=== PATIENT | male | born 1985 | race Caucasian/White ===

== ENCOUNTER 2016-09-21 11:53 | Emergency (ER) | payer MEDICAID ==
[~2016-09-21 11:53] MED LIST: GLUCTES12; INSU1MIS15; LANTUS2P SQ; NOVOLOGP2 SQ
[2016-09-21 11:56] VITALS: BP 127/82; PULSE 116; RESP 24; TEMP 98; O2SAT 95
[2016-09-21] MEDS ORDERED: SODIUM CHLOR 0.9% 1000 ML INJ 1,000 ML IV SCH ×2 (12:32→13:47)
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
[2016-09-21] MEDS ORDERED: TETANUS/DIPHTHERIA TOXOID ADULT 0.5 ML VIAL IM ONE (12:45)
[2016-09-21 12:55] LABS: AUTOMATED NEUTROPHIL # 15.2 TH/MM3 (1.8-7.7); BASOPHIL # 0.1 TH/MM3 (0-0.2); BASOPHIL % 0.4 % (0.0-2.0); EOSINOPHIL # 0.1 TH/MM3 (0-0.4); EOSINOPHIL % 0.7 % (0.0-4.0); HEMATOCRIT 44.1 % (39.0-51.0); HEMO FLAGS DIFF FINAL; LYMPH % 13.6 % (9.0-44.0); LYMPHOCYTE # 2.6 TH/MM3 (1.0-4.8); MEAN CELL VOLUME 95.9 FL (80.0-100.0); MEAN CORPUSCULAR HEMOGLOBIN 31.4 PG (27.0-34.0); MEAN CORPUSCULAR HGB CONC 32.7 % (32.0-36.0); MONO % 5.3 % (0.0-8.0); PLATELET COUNT 275 TH/MM3 (150-450); RED CELL DISTRIBUTION WIDTH 13.9 % (11.6-17.2); WHITE BLOOD COUNT 18.9 TH/MM3 (4.0-11.0)
[2016-09-21 13:02] LABS: AMPHETAMINE, URINE NEG (NEG); BARBITURATES, URINE NEG (NEG); COCAINE, URINE NEG (NEG)
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
[2016-09-21 13:15] LABS: ALKALINE PHOSPHATASE 155 U/L (45-117); ALT (GPT) 22 U/L (12-78); TOTAL BILIRUBIN ADULT 0.3 MG/DL (0.2-1.0)
[2016-09-21 13:18] LABS: ANION GAP 15 MEQ/L (5-15); AST (GOT) 24 U/L (15-37); BICARBONATE 20.2 MEQ/L (21.0-32.0); BLOOD UREA NITROGEN 13 MG/DL (7-18); CHLORIDE 100 MEQ/L (98-107); GLOMERULAR FILTRATION RATE 76 ML/MIN (>89); SODIUM (NA) 135 MEQ/L (136-145)
[2016-09-21 13:23] LABS: ACETAMINOPHEN LESS THAN 2.0 MCG/ML (10.0-30.0)
[2016-09-21 14:37] VITALS: BP 113/58; PULSE 85; RESP 20; O2SAT 100
--- NOTE | 2016-09-21 15:02 | RADRPT ---
EXAM DATE/TIME: 09/21/2016 14:41 [facility] COMPARISON: CHEST SINGLE AP, August 18, 2016, 11:47. INDICATIONS : Patient no known injury. Psych eval. MEDICAL HISTORY : None. SURGICAL HISTORY : None. ENCOUNTER: Initial ACUITY: 1 day PAIN SCORE: 0/10 LOCATION: Bilateral chest FINDINGS: A single view of the chest demonstrates the lungs to be symmetrically aerated without evidence of mas s, infiltrate or effusion. The cardiomediastinal contours are unremarkable. Osseous structures are intact. CONCLUSION: No acute disease. Adam Briggs MD FACR on September 21, 2016 at 15:00 Board Certified Radiologist. This report was verified electronically.
[2016-09-21] MEDS ORDERED: INSULIN HUMAN REGULAR 1,000 UNITS/10 ML VIAL SQ ONE ×2 (16:15→23:30)
[2016-09-21 16:30] LABS: BLOOD, URINE NEG (NEG); COMMENT (UR) CULT NOT INDICATED; CULTURE IF INDICATED CULT NOT INDICATED; GLUCOSE,URINE 1000 mg/dL (NEG); KETONE, URINE 10 mg/dL (NEG); MUCUS URINE FEW /lpf (OCC); NITRITE,URINE NEG (NEG); PH, URINE 5.5 (5.0-8.5); URINE COLOR YELLOW (YELLW/STRAW)
[2016-09-21 18:51] VITALS: BP 129/71; PULSE 84; RESP 18; TEMP 98.2; O2SAT 97
[2016-09-21] MEDS ORDERED: hydrOXYzine HCL 25 MG TAB PO ONE (20:45)
[2016-09-21] MEDS ORDERED: NICOTINE 21 MG/24 HR PATCH TD ONE (20:45)
[2016-09-21 22:19] VITALS: BP 119/66; PULSE 81; RESP 19; O2SAT 99
[2016-09-22 02:12] VITALS: BP 127/75; PULSE 75; RESP 18; O2SAT 100
[2016-09-22 06:27] VITALS: BP 117/61; PULSE 68; RESP 19; O2SAT 98
== END 2016-09-22 08:27 | disposition home or self-care (01) ==
LOC: NEPA 11:53 → NEPJ 09-22 08:27
DX: R45.851 Suicidal ideations (principal); S09.90XA Unspecified injury of head, initial encounter; R73.9 Hyperglycemia, unspecified; E11.65 Type 2 diabetes mellitus with hyperglycemia; D72.829 Elevated white blood cell count, unspecified; R51 Headache; Y00.XXXA Assault by blunt object, initial encounter; I10 Essential (primary) hypertension; F17.200 Nicotine dependence, unspecified, uncomplicated; F12.90 Cannabis use, unspecified, uncomplicated
CPT/HCPCS: 70450; 71010; 80053; 80307; 80329; 81001; 85025; 90471; 90714; 96360; 96361; 96372; 99285; J1815; J7030; 80320; G0480

== ENCOUNTER 2016-12-18 11:30 | Inpatient (IN) | payer MEDICAID ==
[~2016-12-18] VITALS: Ht 167.6 cm; Wt 61.7 kg
[2016-12-18 12:22] VITALS: BP 116/61; PULSE 63; RESP 16; TEMP 98.6; O2SAT 98
[2016-12-18] MEDS ORDERED: SODIUM CHLOR 0.9% 1000 ML INJ 1,000 ML IV SCH ×3 (12:35→15:41)
[2016-12-18] MEDS ORDERED: SODIUM CHLOR 0.9% 1000 ML INJ 1,000 ML IV ONE (12:45)
[2016-12-18] MEDS ORDERED: ONDANSETRON HCL 4 MG/2 ML VIAL IVP ONE (12:45)
[2016-12-18] MEDS ORDERED: SODIUM CHLORIDE 0.9% FLUSH 10 ML FLUSH IV FLUSH PRN (12:45)
[2016-12-18] MEDS ORDERED: INSULIN HUMAN REGULAR 1,000 UNITS/10 ML VIAL IV PUSH ONE ×2 (12:45)
--- NOTE | 2016-12-18 12:48 | PD ---
HPI Chief Complaint: Diabetic Time Seen by Provider: 12:30 Travel History International Travel<30 days: No Contact w/Intl Traveler<30days: No Traveled to known affect area: No History of Present Illness HPI Patient comes emergency Department via EMS after running out of insulin yesterday. Patient is a noncompliant type I diabetic who tries to manage his own diabetes. Patient reports he does not have a primary care doctor and just comes emergency Department whenever he runs out. Patient states he ran out completely yesterday but did not have proper dosing yesterday. Patient complaining of pain in his epigastric region he states typically happens when he runs out of insulin and his blood sugars get high. Patient reports he typically resolves once his blood sugar goes down. Patient states last time this happened approximately 2 months ago as it was last time he received prescription from hospital for 2 months supply. Denies any fevers, nausea, vomiting, chest pain, shortness of breath, or diarrhea. PFSH Past Medical History Hx Anticoagulant Therapy: No Cancer: No Cardiovascular Problems: No Chemotherapy: No Cerebrovascular Accident: No Diabetes: Yes Patient Takes Glucophage: No Diminished Hearing: No Endocrine: Yes Genitourinary: No Hypertension: Yes Immune Disorder: No Implanted Vascular Access Dvce: No Musculoskeletal: Yes Psychiatric: No Reproductive: No Respiratory: No Immunizations Current: Yes Thyroid Disease: No Past Surgical History Hysterectomy: No Oral Surgery: Yes (TEETH REMOVED) Other Surgery: No Social History Alcohol Use: Yes (OCC) Tobacco Use: Yes (/2 PPD) Substance Use: Yes (MARIJUANA yesterday) Allergies-Medications (Allergen,Severity, Reaction): Coded Allergies: No Known Allergies (Unverified , 12/18/16) Reported Meds & Prescriptions Reported Meds & Active Scripts Active Glucocom Test Strips (Blood Glucose Test Strips) 1 Khushboo Khushboo 1 Ea .ROUTE DIRECTED Insulin Syringe/U-100/31G X 5/16" 1 ml 1 Mis Mis 1 Box .ROUTE DIRECTED Lantus Inj (Insulin Glargine) 1,000 Unit/10 Ml Vial 25 Units SQ BIDAC Novolog Inj (Insulin Aspart) 1,000 Unit/10 Ml Vial 1 Units SQ ACHS per previous sliding scale Review of Systems Except as stated in HPI: all other systems reviewed are Neg Physical Exam Narrative GENERAL: Well-developed, well nourished, in no acute distress, and non-ill appearing. SKIN: Focused skin assessment warm and dry. HEAD: Atraumatic. Normocephalic. EYES: Pupils equal and round. EOMI. No scleral icterus. No injection or drainage. ENT: No nasal bleeding or discharge. Mucous membranes pink and moist. NECK: Trachea midline. Supple. No nuclear rigidity. CARDIOVASCULAR: Regular rate and rhythm. No murmur appreciated. RESPIRATORY: No accessory muscle use. No respiratory distress. Clear to auscultation. Breath sounds equal bilaterally. GASTROINTESTINAL: Abdomen soft, reports tenderness epigastric region on palpation, nondistended. Hepatic and splenic margins not palpable. Normal bowel sounds 4. No pulsatile mass. MUSCULOSKELETAL: No obvious deformities. No clubbing. No cyanosis. No edema. Full range of motion. NEUROLOGICAL: Awake and alert. No obvious cranial nerve deficits. Motor grossly within normal limits. Normal speech. PSYCHIATRIC: Appropriate mood and affect; insight and judgment normal. Data Data Last Documented VS Vital Signs Date Time Temp Pulse Resp B/P Pulse Ox O2 Delivery O2 Flow Rate FiO2 12/18/16 12:22 98.6 63 16 116/61 98 Orders Electrocardiogram (12/18/16 12:35) Lipase (12/18/16 12:35) Troponin I (12/18/16 12:35) Complete Blood Count With Diff (12/18/16 12:35) Comprehensive Metabolic Panel (12/18/16 12:35) Magnesium (Mg) (12/18/16 12:35) Beta Hydroxybutyrate (Acetone) (12/18/16 12:35) Chest, Single Ap (12/18/16 ) Urinalysis - C+S If Indicated (12/18/16 12:35) Iv Access Insert/Monitor (12/18/16 12:35) Ecg Monitoring (12/18/16 12:35) Oximetry (12/18/16 12:35) NPO (12/18/16 12:35) Ondansetron Inj (Zofran Inj) (12/18/16 12:45) Sodium Chlor 0.9% 1000 Ml Inj (Ns 1000 M (12/18/16 12:35) Sodium Chloride 0.9% Flush (Ns Flush) (12/18/16 12:45) Insulin Human Regular Inj (Novolin R Inj (12/18/16 12:45) Ckmb (Isoenzyme) Profile (12/18/16 12:35) Blood Gas Venous (Vbg) (12/18/16 12:35) Insulin Human Regular Inj (Novolin R Inj (12/18/16 12:45) Sodium Chlor 0.9% 1000 Ml Inj (Ns 1000 M (12/18/16 12:45) Diet Npo (12/18/16 Dinner) Sodium Chlor 0.9% 1000 Ml Inj (Ns 1000 M (12/18/16 14:06) Dext 5%-Nacl 0.9% 1000 Ml Inj (D5w-Ns 10 (12/18/16 14:06) Insulin Regular (Iv Infusion) (Novolin R (12/18/16 14:15) Potassium Chlor 20 Meq Premix (Kcl 20 Me (12/18/16 14:15) Potassium Chlor 20 Meq Premix (Kcl 20 Me (12/18/16 14:15) Potassium Chlor 20 Meq Premix (Kcl 20 Me (12/18/16 14:15) Potassium Chlor 20 Meq Premix (Kcl 20 Me (12/18/16 14:15) Sodium Bicarbonate 8.4% Inj (Sodium Bica (12/18/16 14:15) Sodium Bicarbonate 8.4% Inj (Sodium Bica (12/18/16 14:15) Sodium Phosphate Inj (Sodium Phosphate I (12/18/16 14:15) Admit Order (Ed Use Only) (12/18/16 14:32) Labs Laboratory Tests Test 12/18/16 12/18/16 12/18/16 12:45 13:10 13:53 White Blood Count 7.4 TH/MM3 Red Blood Count 4.15 MIL/MM3 Hemoglobin 13.4 GM/DL Hematocrit 40.6 % Mean Corpuscular Volume 97.9 FL Mean Corpuscular Hemoglobin 32.4 PG Mean Corpuscular Hemoglobin 33.1 % Concent Red Cell Distribution Width 12.6 % Platelet Count 220 TH/MM3 Mean Platelet Volume 10.8 FL Neutrophils (%) (Auto) 61.4 % Lymphocytes (%) (Auto) 28.1 % Monocytes (%) (Auto) 5.4 % Eosinophils (%) (Auto) 3.0 % Basophils (%) (Auto) 2.1 % Neutrophils # (Auto) 4.5 TH/MM3 Lymphocytes # (Auto) 2.1 TH/MM3 Monocytes # (Auto) 0.4 TH/MM3 Eosinophils # (Auto) 0.2 TH/MM3 Basophils # (Auto) 0.2 TH/MM3 CBC Comment DIFF FINAL Differential Comment Sodium Level 133 MEQ/L Potassium Level 4.5 MEQ/L Chloride Level 99 MEQ/L Carbon Dioxide Level 18.8 MEQ/L Anion Gap 15 MEQ/L Blood Urea Nitrogen 18 MG/DL Creatinine 1.03 MG/DL Estimat Glomerular Filtration 85 ML/MIN Rate Random Glucose 453 MG/DL Calcium Level 8.1 MG/DL Magnesium Level 1.9 MG/DL Total Bilirubin 0.7 MG/DL Aspartate Amino Transf 36 U/L (AST/SGOT) Alanine Aminotransferase 54 U/L (ALT/SGPT) Alkaline Phosphatase 183 U/L Total Creatine Kinase 66 U/L Troponin I LESS THAN 0.02 NG/ML Total Protein 6.0 GM/DL Albumin 3.0 GM/DL Lipase 90 U/L B-Hydroxybutyrate 4.20 MMOL/L Urine Color LIGHT-YELLOW Urine Turbidity CLEAR Urine pH 5.0 Urine Specific [place] 1.032 Urine Protein NEG mg/dL Urine Glucose (UA) 1000 mg/dL Urine Ketones 40 mg/dL Urine Occult Blood NEG Urine Nitrite NEG Urine Bilirubin NEG Urine Urobilinogen LESS THAN 2.0 MG/DL Urine Leukocyte Esterase NEG Urine RBC LESS THAN 1 /hpf Urine WBC LESS THAN 1 /hpf Urine Mucus FEW /lpf Microscopic Urinalysis Comment CULT NOT INDICATED Blood Gas Puncture Site I.V. Blood Gas Patient Temperature 98.6 Venous Blood pH 7.31 Venous Blood Partial Pressure 37 mmHg CO2 Venous Blood Partial Pressure 44 mmHg O2 Venous Blood HCO3 18 mmol/L Venous Blood Oxygen Saturation 73 % Venous Blood Oxygen Content 13.1 Vol % Venous Blood Base Excess -7.1 mmol/L Oxygen Delivery Device ROOM AIR Blood Gas Inspired Oxygen 21 % [facility] Medical Decision Making Medical Screen Exam Complete: Yes Emergency Medical Condition: Yes Differential Diagnosis DKA, hyperglycemia, electrolyte abnormality, medical noncompliance, other Narrative Course Patient was seen and examined. Laboratory and radiological studies were ordered. Patient given IV fluids and IV insulin. Discussed patient with Dr. Mc, who saw and evaluated the patient and admitted the patient to hospitalist. Please see dictation for final diagnosis and disposition. Kashmir Fisher Dec 18, 2016 12:48
[2016-12-18 13:04] LABS: AUTOMATED NEUTROPHIL # 4.5 TH/MM3 (1.8-7.7); BASOPHIL # 0.2 TH/MM3 (0-0.2); BASOPHIL % 2.1 % (0.0-2.0); EOSINOPHIL # 0.2 TH/MM3 (0-0.4); HEMATOCRIT 40.6 % (39.0-51.0); HEMO FLAGS DIFF FINAL; LYMPH % 28.1 % (9.0-44.0); LYMPHOCYTE # 2.1 TH/MM3 (1.0-4.8); MEAN CELL VOLUME 97.9 FL (80.0-100.0); MEAN CORPUSCULAR HEMOGLOBIN 32.4 PG (27.0-34.0); MEAN CORPUSCULAR HGB CONC 33.1 % (32.0-36.0); MONO % 5.4 % (0.0-8.0); NEUT % 61.4 % (16.0-70.0); PLATELET COUNT 220 TH/MM3 (150-450); RED BLOOD COUNT 4.15 MIL/MM3 (4.50-5.90); RED CELL DISTRIBUTION WIDTH 12.6 % (11.6-17.2); WHITE BLOOD COUNT 7.4 TH/MM3 (4.0-11.0)
--- NOTE | 2016-12-18 13:07 | RADRPT ---
EXAM DATE/TIME: 12/18/2016 12:42 [facility] COMPARISON: CHEST SINGLE AP, September 21, 2016, 14:41. INDICATIONS : Chest pain. Patient states he has been having chest pain off and on. MEDICAL HISTORY : Hypertension. Diabetes mellitus type 1. SURGICAL HISTORY : None. ENCOUNTER: Initial ACUITY: 1 day PAIN SCORE: 7/10 LOCATION: Bilateral chest FINDINGS: A single view of the chest demonstrates the lungs to be symmetrically aerated without evidence of mas s, infiltrate or effusion. The cardiomediastinal contours are unremarkable. Osseous structures are intact. CONCLUSION: No acute disease. Tank Leung MD on December 18, 2016 at 13:05 Board Certified Radiologist. This report was verified electronically.
[2016-12-18 13:18] LABS: ALT (GPT) 54 U/L (12-78); ANION GAP 15 MEQ/L (5-15); AST (GOT) 36 U/L (15-37); BICARBONATE 18.8 MEQ/L (21.0-32.0); BLOOD UREA NITROGEN 18 MG/DL (7-18); CHLORIDE 99 MEQ/L (98-107); GLOMERULAR FILTRATION RATE 85 ML/MIN (>89); MAGNESIUM 1.9 MG/DL (1.5-2.5); POTASSIUM 4.5 MEQ/L (3.5-5.1); SODIUM (NA) 133 MEQ/L (136-145)
[2016-12-18 13:22] LABS: ALKALINE PHOSPHATASE 183 U/L (45-117); TOTAL BILIRUBIN ADULT 0.7 MG/DL (0.2-1.0)
[2016-12-18 13:23] LABS: CREATINE KINASE 66 U/L (39-308)
[2016-12-18 13:31] LABS: BLOOD, URINE NEG (NEG); GLUCOSE,URINE 1000 mg/dL (NEG); KETONE, URINE 40 mg/dL (NEG); MUCUS URINE FEW /lpf (OCC); NITRITE,URINE NEG (NEG); URINE COLOR LIGHT-YELLOW (YELLW/STRAW)
[2016-12-18 13:40] LABS: COMMENT (UR) CULT NOT INDICATED; CULTURE IF INDICATED CULT NOT INDICATED
[2016-12-18 14:03] LABS: BLOOD GAS VENOUS BASE EXCESS -7.1 mmol/L (-2-2); BLOOD GAS VENOUS HCO3 18 mmol/L (22-26); BLOOD GAS VENOUS O2 CONTENT 13.1 Vol % (9.0-17.0); BLOOD GAS VENOUS O2 HGB SAT 73 % (70-76); BLOOD GAS VENOUS PCO2 37 mmHg (44-48); BLOOD GAS VENOUS PO2 44 mmHg (35-40); BLOOD GAS VENOUS pH 7.31 (7.360-7.400); TEMP CORR TO 98.6
[2016-12-18 14:04] LABS: CRITICAL VALUE YES; DRAW SITE I.V.; FIO2 21 %; OXYGEN DEVICE ROOM AIR; STAT YES
[2016-12-18] MEDS ORDERED: DEXT 5%-NACL 0.9% 1000 ML INJ 1,000 ML IV SCH ×2 (14:06→15:41)
[2016-12-18] MEDS ORDERED: POTASSIUM CHLOR 20 MEQ PREMIX 100 ML IV PRN ×10 (14:15→15:45)
[2016-12-18] MEDS ORDERED: INSULIN REGULAR (IV INFUSION) 100 UNITS in SODIUM CHLORIDE 0.9% INJ 99 ML IV SCH ×2 (14:15→15:45)
[2016-12-18] MEDS ORDERED: SODIUM PHOSPHATE INJ 15 MMOL in SODIUM CHLORIDE 0.9% INJ 100 ML IV PRN ×2 (14:15→15:45)
[2016-12-18] MEDS ORDERED: SODIUM BICARBONATE 8.4% SOLN 50 MEQ/50 ML VIAL IV PRN ×3 (14:15→15:45)
--- NOTE | 2016-12-18 15:11 | PD ---
Physical Exam Narrative GENERAL: Well-nourished, well-developed patient. SKIN: Warm and dry. HEAD: Normocephalic EYES: No injection or drainage. ENT: No nasal drainage noted. NECK: Supple, trachea midline. CARDIOVASCULAR: Regular rate and rhythm RESPIRATORY: no increased effort. No accessory muscle use. NEUROLOGICAL: Awake and alert. Motor and sensory grossly within normal limits. Normal speech. Data Data Last Documented VS Vital Signs Date Time Temp Pulse Resp B/P Pulse Ox O2 Delivery O2 Flow Rate FiO2 12/18/16 12:22 98.6 63 16 116/61 98 Orders Electrocardiogram (12/18/16 12:35) Lipase (12/18/16 12:35) Troponin I (12/18/16 12:35) Complete Blood Count With Diff (12/18/16 12:35) Comprehensive Metabolic Panel (12/18/16 12:35) Magnesium (Mg) (12/18/16 12:35) Beta Hydroxybutyrate (Acetone) (12/18/16 12:35) Chest, Single Ap (12/18/16 ) Urinalysis - C+S If Indicated (12/18/16 12:35) Iv Access Insert/Monitor (12/18/16 12:35) Ecg Monitoring (12/18/16 12:35) Oximetry (12/18/16 12:35) NPO (12/18/16 12:35) Ondansetron Inj (Zofran Inj) (12/18/16 12:45) Sodium Chlor 0.9% 1000 Ml Inj (Ns 1000 M (12/18/16 12:35) Sodium Chloride 0.9% Flush (Ns Flush) (12/18/16 12:45) Insulin Human Regular Inj (Novolin R Inj (12/18/16 12:45) Ckmb (Isoenzyme) Profile (12/18/16 12:35) Blood Gas Venous (Vbg) (12/18/16 12:35) Insulin Human Regular Inj (Novolin R Inj (12/18/16 12:45) Sodium Chlor 0.9% 1000 Ml Inj (Ns 1000 M (12/18/16 12:45) Diet Npo (12/18/16 Dinner) Sodium Chlor 0.9% 1000 Ml Inj (Ns 1000 M (12/18/16 14:06) Dext 5%-Nacl 0.9% 1000 Ml Inj (D5w-Ns 10 (12/18/16 14:06) Insulin Regular (Iv Infusion) (Novolin R (12/18/16 14:15) Potassium Chlor 20 Meq Premix (Kcl 20 Me (12/18/16 14:15) Potassium Chlor 20 Meq Premix (Kcl 20 Me (12/18/16 14:15) Potassium Chlor 20 Meq Premix (Kcl 20 Me (12/18/16 14:15) Potassium Chlor 20 Meq Premix (Kcl 20 Me (12/18/16 14:15) Sodium Bicarbonate 8.4% Inj (Sodium Bica (12/18/16 14:15) Sodium Bicarbonate 8.4% Inj (Sodium Bica (12/18/16 14:15) Sodium Phosphate Inj (Sodium Phosphate I (12/18/16 14:15) Admit Order (Ed Use Only) (12/18/16 14:32) Labs Laboratory Tests Test 12/18/16 12/18/16 12/18/16 12:45 13:10 13:53 White Blood Count 7.4 TH/MM3 Red Blood Count 4.15 MIL/MM3 Hemoglobin 13.4 GM/DL Hematocrit 40.6 % Mean Corpuscular Volume 97.9 FL Mean Corpuscular Hemoglobin 32.4 PG Mean Corpuscular Hemoglobin 33.1 % Concent Red Cell Distribution Width 12.6 % Platelet Count 220 TH/MM3 Mean Platelet Volume 10.8 FL Neutrophils (%) (Auto) 61.4 % Lymphocytes (%) (Auto) 28.1 % Monocytes (%) (Auto) 5.4 % Eosinophils (%) (Auto) 3.0 % Basophils (%) (Auto) 2.1 % Neutrophils # (Auto) 4.5 TH/MM3 Lymphocytes # (Auto) 2.1 TH/MM3 Monocytes # (Auto) 0.4 TH/MM3 Eosinophils # (Auto) 0.2 TH/MM3 Basophils # (Auto) 0.2 TH/MM3 CBC Comment DIFF FINAL Differential Comment Sodium Level 133 MEQ/L Potassium Level 4.5 MEQ/L Chloride Level 99 MEQ/L Carbon Dioxide Level 18.8 MEQ/L Anion Gap 15 MEQ/L Blood Urea Nitrogen 18 MG/DL Creatinine 1.03 MG/DL Estimat Glomerular Filtration 85 ML/MIN Rate Random Glucose 453 MG/DL Calcium Level 8.1 MG/DL Magnesium Level 1.9 MG/DL Total Bilirubin 0.7 MG/DL Aspartate Amino Transf 36 U/L (AST/SGOT) Alanine Aminotransferase 54 U/L (ALT/SGPT) Alkaline Phosphatase 183 U/L Total Creatine Kinase 66 U/L Troponin I LESS THAN 0.02 NG/ML Total Protein 6.0 GM/DL Albumin 3.0 GM/DL Lipase 90 U/L B-Hydroxybutyrate 4.20 MMOL/L Urine Color LIGHT-YELLOW Urine Turbidity CLEAR Urine pH 5.0 Urine Specific [place] 1.032 Urine Protein NEG mg/dL Urine Glucose (UA) 1000 mg/dL Urine Ketones 40 mg/dL Urine Occult Blood NEG Urine Nitrite NEG Urine Bilirubin NEG Urine Urobilinogen LESS THAN 2.0 MG/DL Urine Leukocyte Esterase NEG Urine RBC LESS THAN 1 /hpf Urine WBC LESS THAN 1 /hpf Urine Mucus FEW /lpf Microscopic Urinalysis Comment CULT NOT INDICATED Blood Gas Puncture Site I.V. Blood Gas Patient Temperature 98.6 Venous Blood pH 7.31 Venous Blood Partial Pressure 37 mmHg CO2 Venous Blood Partial Pressure 44 mmHg O2 Venous Blood HCO3 18 mmol/L Venous Blood Oxygen Saturation 73 % Venous Blood Oxygen Content 13.1 Vol % Venous Blood Base Excess -7.1 mmol/L Oxygen Delivery Device ROOM AIR Blood Gas Inspired Oxygen 21 % MDM Supervised Visit with ROSEY: Yes Interpretation(s) CBC & BMP Diagram 12/18/16 12:45 Last 24 hours Impressions Chest X-Ray 12/18/16 0000 Signed Impressions: Service Date/Time: Sunday, December 18, 2016 12:42 - CONCLUSION: No acute disease. Tank Leung MD Narrative Course I, Dr. barnhart, have reviewed the advance practice practitioner's documentation and am in agreement, met with the patient face to face, made the diagnosis, and the medical decision making was done by me. *My assessment and Findings: 31-year-old male presents with being off his insulin with elevated sugars. His blood work findings DKA. He will be admitted to the hospital for insulin drip and further care. Patient frustrated that he has to stay but ultimately understands he needs to stay for improvement of his diabetes. Diagnosis Primary Impression: DKA (diabetic ketoacidosis) Admitting Information Admitting Physician Requests: Admit Lauren Barnhart MD Dec 18, 2016 15:11
[2016-12-18 15:15] VITALS: BP 141/82; PULSE 90; RESP 16; O2SAT 98
[2016-12-18] MEDS ORDERED: POTASSIUM CHLOR 40 MEQ PREMIX 100 ML IV PRN ×2 (15:45)
[2016-12-18] MEDS ORDERED: MISCELLANEOUS NURSING INFORMATION XX SCH (15:45)
[2016-12-18] MEDS ORDERED: CHLORHEXIDINE GLUCONATE 2 % 1 PACK (2 CLOTHS) TOP PRN (15:45)
[2016-12-18 16:18] VITALS: BP 113/56; PULSE 52; RESP 16; O2SAT 99
[2016-12-18] MEDS ORDERED: CHLORHEXIDINE GLUCONATE 2 % 1 PACK (2 CLOTHS)(extra cloths) TOPICAL PRN (17:15)
--- NOTE | 2016-12-18 19:00 | HHI.HP ---
HPI Service [facility] Hospitalists Primary Care Physician No Primary Care Physician Admission Diagnosis dka Diagnoses: Chief Complaint: abdominal pain Travel History International Travel<30 Days: No Contact w/Intl Traveler <30 Da: No Traveled to Known Affected Are: No History of Present Illness Is a 31-year-old male with past medical history of insulin-dependent diabetes type 1 who presents to [facility] complaining of epigastric pain associated with some nausea and not feeling well. The patient states that he ran out of insulin today's ago, however yesterday he got a little bit of what he had left. The patient denies chest pain, short of breath, cough, fevers, chills or diarrhea. Abdominal pain is localized in the epigastric region, rated 5/10 in intensity, nonradiating and has been improving since he has been in the hospital. At the time of the interview the patient states that he feels very hungry, denies any nausea and abdominal pain has mostly subsided. Review of Systems As per history of present illness, other systems reviewed by me and negative Past Family Social History Past Medical History Diabetes mellitus type 1 Past Surgical History Denies Reported Medications Reported Meds & Active Scripts Active Glucocom Test Strips (Blood Glucose Test Strips) 1 Khushboo Khushboo 1 Ea .ROUTE DIRECTED Insulin Syringe/U-100/31G X 5/16" 1 ml 1 Mis Mis 1 Box .ROUTE DIRECTED Lantus Inj (Insulin Glargine) 1,000 Unit/10 Ml Vial 25 Units SQ BIDAC Novolog Inj (Insulin Aspart) 1,000 Unit/10 Ml Vial 1 Units SQ ACHS per previous sliding scale Allergies: Coded Allergies: No Known Allergies (Unverified , 12/18/16) Active Ordered Medications Current Medications Medications (Trade) Dose Ordered Sig/Nicanor Route Start Time Stop Time Status Last Admin Sodium Chloride 2 ml 2 ml UNSCH PRN IV FLUSH 12/18/16 12:45 Dextrose/Sodium Chloride 1,000 ml @ 200 mls/hr Q5H IV 12/18/16 15:41 12/18/16 17:30 Insulin Human Regular 100 units/ Sodium Chloride 100 ml @ 0 mls/hr TITRATE IV 12/18/16 15:45 Potassium Chloride 100 ml @ 100 mls/hr Q1H PRN IV 12/18/16 15:45 Potassium Chloride 100 ml @ 50 mls/hr Q2H PRN IV 12/18/16 15:45 Potassium Chloride 100 ml @ 100 mls/hr Q1H PRN IV 12/18/16 15:45 Potassium Chloride 100 ml @ 100 mls/hr Q1H PRN IV 12/18/16 15:45 Potassium Chloride 100 ml @ 50 mls/hr Q2H PRN IV 12/18/16 15:45 Potassium Chloride 100 ml @ 50 mls/hr Q2H PRN IV 12/18/16 15:45 Potassium Chloride 100 ml @ 50 mls/hr Q2H PRN IV 12/18/16 15:45 (KCl 20 Meq Premix Inj) 100 ml @ 50 mls/hr Q2H PRN IV 12/18/16 15:45 Miscellaneous Information Patient in critical care unit? Ass... Q361D .XX 12/18/16 17:15 (Chlorhexidine 2% Cloth) 3 pack DAILY@04 TOPICAL 12/19/16 04:00 12/23/16 04:01 (Chlorhexidine 2% Cloth) 3 pack UNSCH PRN TOPICAL 12/18/16 17:15 12/23/16 17:13 Family History Patient's father and brother have diabetes type 1. Social History Patient states that he smokes half a pack per day. Drinks alcohol occasionally, twice a week. Smokes marijuana. The patient is single and has 3 children. Physical Exam Vital Signs Vital Signs Date Time Temp Pulse Resp B/P Pulse Ox O2 Delivery O2 Flow Rate FiO2 12/18/16 16:18 52 16 113/56 99 Room Air 12/18/16 15:15 90 16 141/82 98 Room Air 12/18/16 12:22 98.6 63 16 116/61 98 Physical Exam GENERAL: This is a well-nourished, well-developed patient, in no apparent distress. SKIN: No rashes, ecchymoses or lesions. Cool and dry. HEAD: Atraumatic. Normocephalic. No temporal or scalp tenderness. EYES: Pupils equal round and reactive. Extraocular motions intact. No scleral icterus. No injection or drainage. ENT: Nose without bleeding, purulent drainage or septal hematoma. Throat without erythema, tonsillar hypertrophy or exudate. Uvula midline. Airway patent. NECK: Trachea midline. No JVD or lymphadenopathy. Supple, nontender, no meningeal signs. CARDIOVASCULAR: Regular rate and rhythm without murmurs, gallops, or rubs. RESPIRATORY: Clear to auscultation. Breath sounds equal bilaterally. No wheezes , rales, or rhonchi. GASTROINTESTINAL: Abdomen soft, mildly tender to palpation of epigastric region , nondistended. No hepato-splenomegaly, or palpable masses. No guarding. MUSCULOSKELETAL: Extremities without clubbing, cyanosis, or edema. No joint tenderness, effusion, or edema noted. No calf tenderness. Negative Homans sign bilaterally. NEUROLOGICAL: Awake and alert. Cranial nerves II through XII intact. Motor and sensory grossly within normal limits. Five out of 5 muscle strength in all muscle groups. Normal speech. Laboratory Laboratory Tests Test 12/18/16 12/18/16 12/18/16 12:45 13:10 13:53 White Blood Count 7.4 Red Blood Count 4.15 Hemoglobin 13.4 Hematocrit 40.6 Mean Corpuscular Volume 97.9 Mean Corpuscular Hemoglobin 32.4 Mean Corpuscular Hemoglobin 33.1 Concent Red Cell Distribution Width 12.6 Platelet Count 220 Mean Platelet Volume 10.8 Neutrophils (%) (Auto) 61.4 Lymphocytes (%) (Auto) 28.1 Monocytes (%) (Auto) 5.4 Eosinophils (%) (Auto) 3.0 Basophils (%) (Auto) 2.1 Neutrophils # (Auto) 4.5 Lymphocytes # (Auto) 2.1 Monocytes # (Auto) 0.4 Eosinophils # (Auto) 0.2 Basophils # (Auto) 0.2 CBC Comment DIFF FINAL Differential Comment Sodium Level 133 Potassium Level 4.5 Chloride Level 99 Carbon Dioxide Level 18.8 Anion Gap 15 Blood Urea Nitrogen 18 Creatinine 1.03 Estimat Glomerular Filtration 85 Rate Random Glucose 453 Calcium Level 8.1 Magnesium Level 1.9 Total Bilirubin 0.7 Aspartate Amino Transf 36 (AST/SGOT) Alanine Aminotransferase 54 (ALT/SGPT) Alkaline Phosphatase 183 Total Creatine Kinase 66 Troponin I LESS THAN 0.02 Total Protein 6.0 Albumin 3.0 Lipase 90 B-Hydroxybutyrate 4.20 Urine Color LIGHT-YELLOW Urine Turbidity CLEAR Urine pH 5.0 Urine Specific [place] 1.032 Urine Protein NEG Urine Glucose (UA) 1000 Urine Ketones 40 Urine Occult Blood NEG Urine Nitrite NEG Urine Bilirubin NEG Urine Urobilinogen LESS THAN 2.0 Urine Leukocyte Esterase NEG Urine RBC LESS THAN 1 Urine WBC LESS THAN 1 Urine Mucus FEW Microscopic Urinalysis Comment CULT NOT INDICATED Blood Gas Puncture Site I.V. Blood Gas Patient Temperature 98.6 Venous Blood pH 7.31 Venous Blood Partial Pressure 37 CO2 Venous Blood Partial Pressure 44 O2 Venous Blood HCO3 18 Venous Blood Oxygen Saturation 73 Venous Blood Oxygen Content 13.1 Venous Blood Base Excess -7.1 Oxygen Delivery Device ROOM AIR Blood Gas Inspired Oxygen 21 Result Diagram: 12/18/16 1245 12/18/16 1245 Imaging Last Impressions Chest X-Ray 12/18/16 0000 Signed Impressions: Service Date/Time: Sunday, December 18, 2016 12:42 - CONCLUSION: No acute disease. Tank Leung MD Assessment and Plan Problem List: (1) DKA (diabetic ketoacidosis) ICD Code: E13.10 Status: Acute Plan: Patient presents with elevated blood glucose of 453, increased beta hydroxybutyrate and slightly elevated anion gap metabolic acidosis. VBG showed a pH of 7.3 Admit the patient to intensive care unit. Continue on IV insulin drip as per protocol Continue IV fluids This patient does not have abdominal pain, nausea and feels hungry, I will place the patient on diabetic diet (2) Smoking ICD Code: Z72.0 Status: Chronic Plan: Advised smoking cessation, patient refused nicotine patch. Assessment and Plan GI prophylaxis: PPI. DVT plexus: SCDs. Code Status Full code Discussed Condition With Patient, RN, ED physician. Physician Certification 2 Midnight Certification Type: Admission for Inpatient Services Order for Inpatient Services The services are ordered in accordance with Medicare regulations or non- Medicare payer requirements, as applicable. In the case of services not specified as inpatient-only, they are appropriately provided as inpatient services in accordance with the 2-midnight benchmark. Estimated LOS (days): 2 days is the estimated time the patient will need to remain in the hospital, assuming treatment plan goals are met and no additional complications. Post-Hospital Plan: Home Problem Qualifiers (1) DKA (diabetic ketoacidosis): Kg Palumbo MD Dec 18, 2016 19:00
[2016-12-18 20:00] VITALS: BP 118/72; PULSE 61; RESP 24; TEMP 98; O2SAT 99
[2016-12-18 20:56] LABS: BICARBONATE 23.8 MEQ/L (21.0-32.0); POTASSIUM 3.7 MEQ/L (3.5-5.1)
[2016-12-18] MEDS: PANTOPRAZOLE SOD 40 MG DELAYED RELEASE TAB PO SCH (21:24)
[2016-12-18 22:00] VITALS: PULSE 81
[2016-12-18] MEDS ORDERED: INSULIN DETEMIR 100 UNITS/ML VIAL SQ SCH (22:00)
[2016-12-18] MEDS ORDERED: DEXTROSE 50% IN WATER 50 ML VIAL(D50) IV PUSH PRN (22:00)
[2016-12-18] MEDS ORDERED: GLUCAGON 1 MG/ML VIAL OTHER PRN (22:00)
[2016-12-19] VITALS (11 sets, daily range): BP systolic 111–125; BP diastolic 58–71; PULSE 41–83; RESP 14–19; TEMP 97.7–98.9; O2SAT 98–100
[2016-12-19] MEDS: INSULIN ASPART SUPPLEMENTAL SCALE SQ SCH ×5 (03:00→21:21)
[2016-12-19] MEDS ORDERED: CHLORHEXIDINE GLUCONATE 2 % 1 PACK (2 CLOTHS) TOP SCH (04:00)
[2016-12-19] MEDS: CHLORHEXIDINE GLUCONATE 2 % 1 PACK (2 CLOTHS)(taper/protocol) TOPICAL SCH (04:00)
[2016-12-19] MEDS ORDERED: INSULIN ASPART SUPPLEMENTAL SCALE SQ SCH (07:00)
[2016-12-19] MEDS: PANTOPRAZOLE SOD 40 MG DELAYED RELEASE TAB PO SCH (08:55)
[2016-12-19] MEDS: INSULIN DETEMIR 100 UNITS/ML VIAL SQ SCH ×2 (10:25→16:00)
[2016-12-19 10:53] LABS: HEMOGLOBIN A1a 1.5 %; HEMOGLOBIN A1b 1.2 %; HEMOGLOBIN Ao 74.9 %; HEMOGLOBIN F 2.6 %; HEMOGLOBIN P3 5.2 %
--- NOTE | 2016-12-19 11:53 | HHI.PR ---
Subjective Remarks Patient denies cp/sob denies nausea, abdominal pain tolerating diet denies palpitations or dizziness. Objective Vitals Vital Signs Date Time Temp Pulse Resp B/P Pulse Ox O2 Delivery O2 Flow Rate FiO2 12/19/16 10:00 53 12/19/16 08:00 98.2 73 19 111/67 100 12/19/16 08:00 73 12/19/16 06:00 41 12/19/16 04:00 97.9 53 16 112/70 99 12/19/16 04:00 53 12/19/16 02:00 51 12/19/16 00:00 98.5 52 16 113/58 99 12/19/16 00:00 52 12/18/16 22:00 81 12/18/16 20:00 61 12/18/16 20:00 98.0 61 24 118/72 99 12/18/16 16:18 52 16 113/56 99 Room Air 12/18/16 15:15 90 16 141/82 98 Room Air 12/18/16 12:22 98.6 63 16 116/61 98 I/O 12/18/16 12/18/16 12/18/16 12/19/16 12/19/16 12/19/16 07:00 15:00 23:00 07:00 15:00 23:00 Intake Total 2237 ml 10 ml Output Total 400 ml 800 ml Balance 1837 ml -790 ml Intake Oral 500 ml IV Total 1737 ml 10 ml Output Urine Total 400 ml 800 ml # Voids 1 1 # Bowel Movements 0 0 Result Diagram: 12/18/16 1245 12/18/16 2019 Imaging Last Impressions Chest X-Ray 12/18/16 0000 Signed Impressions: Service Date/Time: Sunday, December 18, 2016 12:42 - CONCLUSION: No acute disease. Tank Leung MD Objective Remarks GENERAL: This is a well-nourished, well-developed patient, in no apparent distress. SKIN: No rashes, ecchymoses or lesions. Cool and dry. HEAD: Atraumatic. Normocephalic. No temporal or scalp tenderness. EYES: Pupils equal round and reactive. Extraocular motions intact. No scleral icterus. No injection or drainage. ENT: Nose without bleeding, purulent drainage or septal hematoma. Throat without erythema, tonsillar hypertrophy or exudate. Uvula midline. Airway patent. NECK: Trachea midline. No JVD or lymphadenopathy. Supple, nontender, no meningeal signs. CARDIOVASCULAR: Regular rate and rhythm without murmurs, gallops, or rubs. RESPIRATORY: Clear to auscultation. Breath sounds equal bilaterally. No wheezes , rales, or rhonchi. GASTROINTESTINAL: Abdomen soft, non tender, nondistended. No hepato-splenomegaly , or palpable masses. No guarding. MUSCULOSKELETAL: Extremities without clubbing, cyanosis, or edema. No joint tenderness, effusion, or edema noted. No calf tenderness. Negative Homans sign bilaterally. NEUROLOGICAL: Awake and alert. Cranial nerves II through XII intact. Motor and sensory grossly within normal limits. Five out of 5 muscle strength in all muscle groups. Normal speech. Procedures none Medications and IVs Current Medications Medications (Trade) Dose Ordered Sig/Nicanor Route Start Time Stop Time Status Last Admin (NS Flush) 2 ml UNSCH PRN IV FLUSH 12/18/16 12:45 Miscellaneous Information Patient in critical care unit? Ass... Q361D .XX 12/18/16 17:15 (Chlorhexidine 2% Cloth) 3 pack DAILY@04 TOPICAL 12/19/16 04:00 12/23/16 04:01 (Chlorhexidine 2% Cloth) 3 pack UNSCH PRN TOPICAL 12/18/16 17:15 12/23/16 17:13 (Protonix) 40 mg DAILY PO 12/18/16 19:30 12/19/16 08:55 (D50w (Vial) Inj) 25 ml UNSCH PRN IV PUSH 12/18/16 22:00 (Glucagon Inj) 1 mg UNSCH PRN OTHER 12/18/16 22:00 (Levemir Inj) 25 units BIDAC SQ 12/19/16 10:00 12/19/16 10:25 Urinary Catheter: No Vascular Central Line Catheter: No A/P Problem List: (1) DKA (diabetic ketoacidosis) ICD Code: E13.10 Status: Acute Plan: Patient presents with elevated blood glucose of 453, increased beta hydroxybutyrate and slightly elevated anion gap metabolic acidosis. VBG showed a pH of 7.3 Patient was admitted into intensive care unit and started on the IV insulin drip protocol, IV fluids. BMP was monitored and toenail gap closed. Patient has been transitioned to subcutaneous insulin. Continue diabetic diet. Possible discharge after bradycardia is investigated. Continue to monitor Accu-Cheks. (2) Smoking ICD Code: Z72.0 Status: Chronic Plan: Advised smoking cessation, patient refused nicotine patch. (3) Bradycardia ICD Code: R00.1 Status: Acute Plan: Patient had an EKG on admission which showed a sinus bradycardia with a ventricular rate of 45 bpm, no ST-T changes. Reviewed personally by me. During the patient's stay in the intensive care unit he was noted and reported by RN that the patient became bradycardic into the 30s while he was sleeping. Patient states that every time that he comes to the hospital he gets woken up because his heart rate is going very low. Reportedly the patient's heart rate went down into the 30s, however the lowest recorded heart rate is 41. I will order an echocardiogram and a cardiology consultation for further recommendations. Assessment and Plan GI prophylaxis: PPI. DVT prophylaxis: SCDs, patient alert risk for DVT. Encourage ablation. Discharge Planning Okay to transfer to the medical floor on telemetry. Possible discharge later today or in a.m. after echocardiogram and cardiology consultation. Problem Qualifiers (1) DKA (diabetic ketoacidosis): Kg Palumob MD Dec 19, 2016 11:53
--- NOTE | 2016-12-19 14:53 | MB ---
cc: ERIC MAYER MD DATE OF CONSULTATION: 12/19/2016. REASON FOR CONSULTATION: Bradycardia. HISTORY OF PRESENT ILLNESS: The patient is a very pleasant 31-year-old type 1 diabetic who came in with mild DKA because he ran out of insulin. While in the ICU getting treatment, it was intermittently reported that he would dip down into the 30s for a heart rate although he was asymptomatic. He has been now transferred to the telemetry floor but telemetry has not yet been started so I am unable to see what his heart rate trends have been, though by exam it is in the 50s currently. He is completely asymptomatic from a cardiac standpoint denying chest pain, shortness of breath, lightheadedness, dizziness or syncope. He says the only time he feels somewhat lightheaded is when his sugars are very high. PAST MEDICAL HISTORY: 1. Type 1 diabetes. 2. Tobacco abuse. 3. Marijuana use. CURRENT MEDICATIONS: Insulin. ALLERGIES: NO KNOWN DRUG ALLERGIES. PHYSICAL EXAMINATION: VITAL SIGNS: Afebrile, pulse 50, respiratory rate 14, blood pressure 118/69 satting 100 room air. GENERAL: Pleasant thin gentleman with multiple tattoos in no distress. NECK: No JVD. LUNGS: Clear to auscultation bilaterally. CARDIOVASCULAR: Mildly bradycardic, regular rhythm. No murmurs appreciated. ABDOMEN: Benign. EXTREMITIES: No edema. LABORATORY DATA: White count 7.4, hematocrit 40.6, platelets 220,000. Sodium 142, potassium 3.7, chloride 111, bicarbonate 23.8, BUN 12, creatinine 0.9, glucose of 145 down from 453, EKGS: EKG showed sinus bradycardia with no acute S-T or T wave changes. IMPRESSION: 1. Bradycardia. The patient had asymptomatic sinus bradycardia that is unlikely to require any specific treatment. I will keep him on telemetry overnight and watch for any more profound bradycardia; presuming there is none, he likely can be discharged home tomorrow. Certainly there is no indication for a pacemaker without any symptoms for the sinus bradycardia. Thank you for the opportunity to participate in this patient's care. Eric Mayer MD [facility] /2:28 PM /2:39 PM
--- NOTE | 2016-12-19 15:30 | EKG ---
Date Performed: 12/18/2016 Time Performed: 13:09:54 PTAGE: 31 years EKG: SINUS BRADYCARDIA BORDERLINE ECG PREVIOUS TRACING : 08/18/2016 12.43 Compared to previous tracing, heart rate is much slower, ot herwise no significant change. DOCTOR: Jean Paul Barbosa Interpretating Date/Time 12/19/2016 15:28:50
[2016-12-20 00:24] VITALS: BP 129/75; PULSE 60; RESP 16; TEMP 98; O2SAT 98
[2016-12-20] MEDS: INSULIN ASPART SUPPLEMENTAL SCALE SQ SCH ×3 (03:00→12:12)
[2016-12-20] MEDS: CHLORHEXIDINE GLUCONATE 2 % 1 PACK (2 CLOTHS)(taper/protocol) TOPICAL SCH (03:10)
[2016-12-20 04:00] VITALS: BP 121/60; PULSE 80; RESP 18; TEMP 98.2; O2SAT 98
[2016-12-20] MEDS: INSULIN DETEMIR 100 UNITS/ML VIAL SQ SCH (06:41)
[2016-12-20 07:38] LABS: POTASSIUM 4.1 MEQ/L (3.5-5.1)
[2016-12-20 08:00] VITALS: BP 127/66; PULSE 66; PULSE 70; RESP 18; TEMP 98.3; O2SAT 98
[2016-12-20] MEDS: PANTOPRAZOLE SOD 40 MG DELAYED RELEASE TAB PO SCH (08:57)
--- NOTE | 2016-12-20 11:11 | PD.CARD.PN ---
Subjective Subjective Remarks No complaints, asymptomatic sinus mari on tele, mostly in 50s, occasionally dips into 40s. Objective Medications Administered Medications Medications (Trade) Dose Ordered Sig/Nicanor Route PRN Reason Start Time Stop Time Status Last Admin Dose Admin Pantoprazole Sodium (Protonix) 40 mg DAILY PO 12/18/16 19:30 12/20/16 08:57 Insulin Detemir (Levemir Inj) 25 units BIDAC SQ 12/19/16 10:00 12/20/16 06:41 Vital Signs / I&O Vital Signs Date Time Temp Pulse Resp B/P Pulse Ox O2 Delivery O2 Flow Rate FiO2 12/20/16 08:00 66 12/20/16 08:00 Room Air 12/20/16 08:00 98.3 70 18 127/66 98 12/20/16 04:00 98.2 80 18 121/60 98 12/20/16 04:00 Room Air 12/20/16 00:24 98.0 60 16 129/75 98 12/20/16 00:00 Room Air 12/19/16 20:40 98.9 65 16 125/70 98 12/19/16 20:00 73 12/19/16 20:00 Room Air 12/19/16 16:00 98.5 73 18 121/71 99 12/19/16 14:00 83 12/19/16 12:00 50 12/19/16 12:00 97.7 50 14 118/69 100 I/O 12/19/16 12/19/16 12/19/16 12/20/16 12/20/16 12/20/16 07:00 15:00 23:00 07:00 15:00 23:00 Intake Total 10 ml 960 ml Output Total 800 ml 850 ml 750 ml Balance -790 ml -850 ml 210 ml Intake Oral 960 ml IV Total 10 ml Output Urine Total 800 ml 850 ml 750 ml # Voids 1 2 # Bowel Movements 0 0 Physical Exam GENERAL: This is a well-nourished, well-developed patient, in no apparent distress. CARDIOVASCULAR: Regular rate and rhythm without murmurs, gallops, or rubs. RESPIRATORY: Clear to auscultation. Breath sounds equal bilaterally. No wheezes , rales, or rhonchi. GASTROINTESTINAL: Abdomen soft, non-tender, nondistended. Normal active bowel sounds MUSCULOSKELETAL: Extremities without clubbing, cyanosis, or edema. NEURO: Alert & Oriented x4 to person, place, time, situation. Moves all ext x4 Laboratory Laboratory Tests Test 12/20/16 05:23 Sodium Level 139 MEQ/L Potassium Level 4.1 MEQ/L Chloride Level 105 MEQ/L Carbon Dioxide Level 25.0 MEQ/L Anion Gap 9 MEQ/L Blood Urea Nitrogen 13 MG/DL Creatinine 0.78 MG/DL Estimat Glomerular Filtration 118 ML/MIN Rate Random Glucose 289 MG/DL Calcium Level 8.2 MG/DL Imaging Last Impressions Chest X-Ray 12/18/16 0000 Signed Impressions: Service Date/Time: Sunday, December 18, 2016 12:42 - CONCLUSION: No acute disease. Tank Leung MD Assessment and Plan Problem List: (1) Bradycardia Assessment and Plan: Asymptomatic, no specific treatment required. (2) DKA (diabetic ketoacidosis) Assessment and Plan: mgt per medical team Assessment and Plan will sign off, please call with questions. Problem Qualifiers (1) DKA (diabetic ketoacidosis): Eric Mayer MD Dec 20, 2016 11:11
[2016-12-20 12:00] VITALS: BP 112/73; PULSE 61; RESP 18; TEMP 98.7; O2SAT 95
[2016-12-20] MEDS ORDERED: LANTUS2P SQ (15:32)
[2016-12-20] MEDS ORDERED: GLUCTES12 (15:32)
[2016-12-20] MEDS ORDERED: NOVOLOGP2 SQ (15:32)
[2016-12-20] MEDS ORDERED: INSU1MIS15 (15:32)
--- NOTE | 2016-12-20 15:34 | HHI.DCPOC ---
Discharge Care Plan Diagnosis: (1) DKA (diabetic ketoacidosis) (2) Bradycardia Goals to Promote Your Health * To prevent worsening of your condition and complications * To maintain your health at the optimal level Directions to Meet Your Goals Take your medications as prescribed Follow your dietary instruction Follow activity as directed Keep your appointments as scheduled Take your immunizations and boosters as scheduled If your symptoms worsen call your PCP, if no PCP go to Urgent Care Center or Emergency Room Smoking is Dangerous to Your Health. Avoid second hand smoke Call the 24-hour hour crisis hotline for domestic abuse at Kg Palumbo MD Dec 20, 2016 15:33
--- NOTE | 2016-12-20 15:40 | HHI.DS ---
Discharge Summary Admission Date Dec 18, 2016 at 14:33 Discharge Date: Dec 20, 2016 Admitting Diagnosis dka (1) DKA (diabetic ketoacidosis) ICD Code: E13.10 Diagnosis: Principal (2) Smoking ICD Code: Z72.0 Diagnosis: Principal (3) Bradycardia ICD Code: R00.1 Diagnosis: Principal Procedures none Brief History - From Admission Is a 31-year-old male with past medical history of insulin-dependent diabetes type 1 who presents to [facility] complaining of epigastric pain associated with some nausea and not feeling well. The patient states that he ran out of insulin today's ago, however yesterday he got a little bit of what he had left. The patient denies chest pain, short of breath, cough, fevers, chills or diarrhea. Abdominal pain is localized in the epigastric region, rated 5/10 in intensity, nonradiating and has been improving since he has been in the hospital. At the time of the interview the patient states that he feels very hungry, denies any nausea and abdominal pain has mostly subsided. CBC/BMP: 12/18/16 1245 12/20/16 0523 Significant Findings Laboratory Tests Test 12/18/16 12/18/16 12/18/16 12/18/16 12:45 13:10 13:53 20:19 Red Blood Count 4.15 MIL/MM3 (4.50-5.90) Basophils (%) (Auto) 2.1 % (0.0-2.0) Sodium Level 133 MEQ/L (136-145) Carbon Dioxide Level 18.8 MEQ/L (21.0-32.0) Estimat Glomerular Filtration 85 ML/MIN (>89) Rate Random Glucose 453 MG/DL 145 MG/DL (74-106) (74-106) Calcium Level 8.1 MG/DL 7.7 MG/DL (8.5-10.1) (8.5-10.1) Alkaline Phosphatase 183 U/L (45-117) Troponin I LESS THAN 0.02 NG/ML (0.02-0.05) Total Protein 6.0 GM/DL (6.4-8.2) Albumin 3.0 GM/DL (3.4-5.0) B-Hydroxybutyrate 4.20 MMOL/L (0.00-0.39) Urine Glucose (UA) 1000 mg/dL (NEG) Urine Ketones 40 mg/dL (NEG) Urine Mucus FEW /lpf (OCC) Venous Blood pH 7.31 (7.360-7.400) Venous Blood Partial Pressure 37 mmHg (44-48) CO2 Venous Blood Partial Pressure 44 mmHg (35-40) O2 Venous Blood HCO3 18 mmol/L (22-26) Venous Blood Base Excess -7.1 mmol/L (-2-2) Chloride Level 111 MEQ/L (98-107) Test 12/19/16 12/20/16 04:06 05:23 Hemoglobin A1c 11.5 % (4.3-6.0) Random Glucose 289 MG/DL (74-106) Calcium Level 8.2 MG/DL (8.5-10.1) Imaging Last Impressions Chest X-Ray 12/18/16 0000 Signed Impressions: Service Date/Time: Sunday, December 18, 2016 12:42 - CONCLUSION: No acute disease. Tank Leung MD PE at Discharge GENERAL: This is a well-nourished, well-developed patient, in no apparent distress. SKIN: No rashes, ecchymoses or lesions. Cool and dry. HEAD: Atraumatic. Normocephalic. No temporal or scalp tenderness. EYES: Pupils equal round and reactive. Extraocular motions intact. No scleral icterus. No injection or drainage. ENT: Nose without bleeding, purulent drainage or septal hematoma. Throat without erythema, tonsillar hypertrophy or exudate. Uvula midline. Airway patent. NECK: Trachea midline. No JVD or lymphadenopathy. Supple, nontender, no meningeal signs. CARDIOVASCULAR: Regular rate and rhythm without murmurs, gallops, or rubs. RESPIRATORY: Clear to auscultation. Breath sounds equal bilaterally. No wheezes , rales, or rhonchi. GASTROINTESTINAL: Abdomen soft, non tender, nondistended. No hepato-splenomegaly , or palpable masses. No guarding. MUSCULOSKELETAL: Extremities without clubbing, cyanosis, or edema. No joint tenderness, effusion, or edema noted. No calf tenderness. Negative Homans sign bilaterally. NEUROLOGICAL: Awake and alert. Cranial nerves II through XII intact. Motor and sensory grossly within normal limits. Five out of 5 muscle strength in all muscle groups. Normal speech. Pt update on day of discharge She denies abdominal pain, nausea vomiting. Sugars in the 200s but stable. Patient was monitored overnight on telemetry and did not have any profound bradycardia. Cleared to be discharged by cardiology. Hospital Course 1) DKA (diabetic ketoacidosis) Patient presented with elevated blood glucose of 453, increased beta hydroxybutyrate and slightly elevated anion gap metabolic acidosis. VBG showed a pH of 7.3 Patient was admitted into intensive care unit and started on the IV insulin drip protocol, IV fluids. BMP was monitored and toenail gap closed. Patient was then transitioned to subcutaneous insulin. On diabetic diet and tolerating it. (2) Smoking Advised smoking cessation, patient refused nicotine patch. (3) Bradycardia Patient had an EKG on admission which showed a sinus bradycardia with a ventricular rate of 45 bpm, no ST-T changes. Reviewed personally by me. During the patient's stay in the intensive care unit he was noted and reported by RN that the patient became bradycardic into the 30s while he was sleeping. Patient states that every time that he comes to the hospital he gets woken up because his heart rate is going very low. Reportedly the patient's heart rate went down into the 30s, however the lowest recorded heart rate is 41. Cardiology consulted. Patient monitor on telemetry overnight and no profound bradycardia was observed. Cardiology cleared the patient for discharge since the patient has asymptomatic bradycardia. GI prophylaxis: PPI. DVT prophylaxis: SCDs, encouraged ambulation. Pt Condition on Discharge: Stable Discharge Disposition: Discharge Home Discharge Time: <= 30 minutes Discharge Instructions DIET: Follow Instructions for: Diabetic Diet Activities you can perform: Regular-No Restrictions Follow up Referrals: PCP Follow-up - 2-3 Days New Medications: Insulin Aspart Inj (Novolog Inj) 1,000 Unit/10 Ml Vial 2-12 UNITS SQ ACHS Max dose at bedtime ( ) units; sugars less than 70,(0) units ; sugars 150-199,(2) units; sugars 200-249,(4) units; sugars 250-299,(7) units; sugars 300-349,(10) units; sugars greater than 349,(12)units Blood Sugar Management #10 Ref 1 ML Continued Medications: Glucocom Test Strips (Glucocom Test Strips) 1 Khushboo Khushboo 1 EA .ROUTE DIRECTED Blood Sugar Management #100 BOX (This prescription has been renewed) Insulin Aspart Inj (Novolog Inj) 1,000 Unit/10 Ml Vial 1 UNITS SQ ACHS per previous sliding scale Blood Sugar Management #30 Ref 1 ML Insulin Glargine Inj (Lantus Inj) 1,000 Unit/10 Ml Vial 25 UNITS SQ BIDAC Blood Sugar Management #1 Ref 1 VIAL (This prescription has been renewed) Insulin Syringe/U-100/31G X 5/16" 1 ml (Insulin Syringe/U-100/31G X 5/16" 1 ml) 1 Mis Mis 1 BOX .ROUTE DIRECTED Blood Sugar Management #1 Ref 0 BOX (This prescription has been renewed) Kg Palumbo MD Dec 20, 2016 15:39
== END 2016-12-20 15:43 | disposition home or self-care (01) | DRG 639 ==
LOC: NEPC 11:30 → NEDA 14:33 → HIMN 16:40 → N04A 12-19 14:21
PROVIDERS: ADMIT Hospitalist; ATTEND Hospitalist
DX: E10.10 Type 1 diabetes mellitus with ketoacidosis without coma (principal); I10 Essential (primary) hypertension; F17.210 Nicotine dependence, cigarettes, uncomplicated; F12.90 Cannabis use, unspecified, uncomplicated; Z79.4 Long term (current) use of insulin; Z91.19 Patient's noncompliance with other medical treatment and regimen
CPT/HCPCS: 71010; 80048; 80053; 81001; 82010; 82550; 82805; 82948; 83036; 83690; 83735; 84100; 84484; 85025; 87641; 93005; 96361; 96374; 96375; J1815; J1817; J2405; J3480; J7030; J7042

== ENCOUNTER 2017-02-08 12:21 | Emergency (ER) | payer MEDICAID ==
[~2017-02-08] VITALS: Ht 167.6 cm; Wt 62.0 kg
[2017-02-08 12:23] VITALS: BP 131/76; PULSE 98; RESP 16; TEMP 98.2; O2SAT 99
--- NOTE | 2017-02-08 12:40 | PD ---
Physical Exam Time Seen by Provider: 12:39 Narrative 31 y/o male here for medication refill, he is running out of insulin. He ahs not been checking his blood sugars. He feels normal. Vital signs reviewed. Seen at triage desk. Awaiting bed placement. Data Data Last Documented VS Vital Signs Date Time Temp Pulse Resp B/P Pulse Ox O2 Delivery O2 Flow Rate FiO2 02/08/17 12:23 98.2 98 16 131/76 99 MDM Medical Record Reviewed: Yes Supervised Visit with ROSEY: No Marcelino Watson Feb 08, 2017 12:40
[2017-02-08] MEDS ORDERED: INSU1MIS15 (13:53)
[2017-02-08] MEDS ORDERED: NOVOLOGP2 SQ (13:53)
[2017-02-08] MEDS ORDERED: GLUCTES12 (13:53)
[2017-02-08] MEDS ORDERED: LANTUS2P SQ (13:53)
--- NOTE | 2017-02-08 13:55 | PD ---
HPI Chief Complaint: Medication Refill Request Time Seen by Provider: 13:49 Travel History International Travel<30 days: No Contact w/Intl Traveler<30days: No Traveled to known affect area: No History of Present Illness HPI 31-year-old male presents to emergency department requesting medication refill for NovoLog and Lantus. He is also asking for testing strips and insulin syringes. He last used sliding scale insulin yesterday and took his Lantus as prescribed this morning. He has no medical complaints at this time. Has an appointment with his primary care provider, Dr. Jasso, in 2 weeks. No known allergies. Has no medical complaints. No known allergies. No other modifying factors or associated signs and symptoms. PFSH Past Medical History Hx Anticoagulant Therapy: No Cancer: No Cardiovascular Problems: No Chemotherapy: No Cerebrovascular Accident: No Diabetes: Yes Patient Takes Glucophage: No Diminished Hearing: No Endocrine: Yes Genitourinary: No Hypertension: Yes Immune Disorder: No Implanted Vascular Access Dvce: No Musculoskeletal: Yes Psychiatric: No Reproductive: No Respiratory: No Immunizations Current: Yes Thyroid Disease: No Influenza Vaccination: No Past Surgical History Hysterectomy: No Oral Surgery: Yes (TEETH REMOVED) Other Surgery: No Social History Alcohol Use: Yes (OCC) Tobacco Use: Yes (/2 PPD) Substance Use: Yes (MARIJUANA yesterday) Allergies-Medications (Allergen,Severity, Reaction): Coded Allergies: No Known Allergies (Unverified , 02/08/17) Reported Meds & Prescriptions Reported Meds & Active Scripts Active Novolog Inj (Insulin Aspart) 1,000 Unit/10 Ml Vial 2-12 Units SQ ACHS Max dose at bedtime ( ) units; sugars less than 70,(0) units; sugars 150-199,(2) units; sugars 200-249,(4) units; sugars 250-299,(7) units; sugars 300-349,(10) units; sugars greater than 349,(12)units Glucocom Test Strips (Blood Glucose Test Strips) 1 Khushboo Khushboo 1 Ea .ROUTE DIRECTED Insulin Syringe/U-100/31G X 5/16" 1 ml 1 Mis Mis 1 Box .ROUTE DIRECTED Lantus Inj (Insulin Glargine) 1,000 Unit/10 Ml Vial 25 Units SQ BIDAC Novolog Inj (Insulin Aspart) 1,000 Unit/10 Ml Vial 1 Units SQ ACHS per previous sliding scale Review of Systems Except as stated in HPI: all other systems reviewed are Neg Physical Exam Narrative GENERAL: Well-nourished, well-developed male patient, in no acute distress SKIN: Warm and dry. HEAD: Atraumatic. Normocephalic. EYES: Pupils equal and round. No scleral icterus. No injection or drainage. ENT: Mucosa pink and moist. Airway patent. NECK: Trachea midline. CARDIOVASCULAR: Regular rate. RESPIRATORY: No accessory muscle use. GASTROINTESTINAL: Flat. MUSCULOSKELETAL: No obvious deformities. No clubbing. No cyanosis. No edema. NEUROLOGICAL: Awake and alert. Oriented 3. No obvious cranial nerve deficits. Motor grossly within normal limits. Normal speech. PSYCHIATRIC: Appropriate mood and affect; insight and judgment normal. Data Data Last Documented VS Vital Signs Date Time Temp Pulse Resp B/P Pulse Ox O2 Delivery O2 Flow Rate FiO2 02/08/17 12:23 98.2 98 16 131/76 99 MDM Medical Decision Making Medical Screen Exam Complete: Yes Emergency Medical Condition: Yes Medical Record Reviewed: Yes Differential Diagnosis Medication refill, diabetes mellitus, medical clearance Narrative Course 31-year-old male requesting medication refill on NovoLog and Lantus. BGM 195 in the ER. He last took Lantus this morning and used a sliding scale last yesterday. He has no medical complaints at this time. Has an appointment with primary care provider in 2 weeks. NovoLog, Lantus prescribed for home. Prescription for test strips and insulin syringes also provided. Patient verbalizes understanding and agreement with treatment plan. Patient is medically cleared and stable for discharge. Discussed reasons to return to the emergency department. Instructed patient to follow up with primary care provider. Patient agrees with treatment plan. The patients vital signs are stable and the patient is stable for outpatient follow-up and treatment. Patient discharged home, stable and in no acute distress. Diagnosis Primary Impression: Medication refill Referrals: Primary Care Physician Patient Instructions: General Instructions, Medication Refill, ED Departure Forms: Tests/Procedures, Work Release Enter return to work date: Feb 09, 2017 Additional Instructions: Follow-up with primary care provider Return to the emergency department immediately with worsening of symptoms Med/Other Pt SpecificInfo: Prescription(s) given Scripts Insulin Aspart Inj (Novolog Inj)1,000 Unit/10 Ml Vial2-12 Units SQ ACHS #10 ML Ref 1 Max dose at bedtime ( ) units; sugars less than 70,(0) units; sugars 150-199,(2) units; sugars 200-249,(4) units; sugars 250-299,(7) units; sugars 300-349,(10) units; sugars greater than 349,(12)units Prov:Marva Nelson 02/08/17 Glucocom Test Strips 1 Khushboo Khushboo #100 Ea .route As Directed Prov:Marva Nelson 02/08/17 Insulin Syringe/U-100/31G X 01/19" 1 ml 1 Mis Mis #1 BOX .ROUTE DIRECTED Ref 0 Prov:Marva Nelson 02/08/17 Insulin Glargine Inj (Lantus Inj)1,000 Unit/10 Ml Vial25 Units SQ BIDAC #1 VIAL Ref 1 Prov:Marva Nelson 02/08/17 Disposition: 01 DISCHARGE HOME Condition: Stable Marva Nelson Feb 08, 2017 13:54
== END 2017-02-08 14:09 | disposition home or self-care (01) ==
LOC: NEPK 12:21
DX: E11.9 Type 2 diabetes mellitus without complications (principal); I10 Essential (primary) hypertension; F17.200 Nicotine dependence, unspecified, uncomplicated; Z79.4 Long term (current) use of insulin; Z76.0 Encounter for issue of repeat prescription
CPT/HCPCS: 99281

== ENCOUNTER 2017-06-01 11:31 | Emergency (ER) | payer MEDICAID ==
[~2017-06-01] VITALS: Ht 167.6 cm; Wt 70.0 kg
[2017-06-01 11:32] VITALS: BP 137/73; PULSE 90; RESP 18; TEMP 97.8; O2SAT 97
--- NOTE | 2017-06-01 11:39 | PD ---
Physical Exam Time Seen by Provider: 11:35 Narrative 31-year-old male presents for insulin refill. Been out of his short-acting for 3-4 weeks. Has been covering with long-acting. Is also out of testers and syringes. He ran out of his test strips this morning and is blood sugar was 524. Blood sugar in triage 421. Denies symptoms of hyperglycemia. Reports blood sugars elevated a lot. Patient seen in triage. Vital signs reviewed. Patient taken to medical bed. Data Data Last Documented VS Vital Signs Date Time Temp Pulse Resp B/P (MAP) Pulse Ox O2 Delivery O2 Flow Rate FiO2 06/01/17 11:32 97.8 90 18 137/73 (94) 97 MDM Supervised Visit with ROSEY: Marva Au Jun 01, 2017 11:39
[2017-06-01] MEDS ORDERED: LANTUS2P SQ (11:55)
[2017-06-01] MEDS ORDERED: INSU1MIS15 (11:55)
[2017-06-01] MEDS ORDERED: NOVOLOGP2 SQ (11:55)
[2017-06-01] MEDS ORDERED: GLUCTES12 (11:55)
--- NOTE | 2017-06-01 11:55 | PD ---
HPI Chief Complaint: Diabetic Time Seen by Provider: 11:46 Travel History International Travel<30 days: No Contact w/Intl Traveler<30days: No Traveled to known affect area: No History of Present Illness HPI The 31-year-old insulin-dependent diabetic who presents complaint is been out of his short-acting insulin for 3 weeks. He has been taking increased doses of his long-acting insulin. 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 He looks well. Denies any somatic complaints. Came in today Is actually broke the needle off his last insulin needle that he was reusing. History Past Medical History Narrative Medical Diabetes Influenza Vaccination: No Social History Alcohol Use: Yes (OCC) Tobacco Use: Yes (1 ppd) Allergies-Medications (Allergen,Severity, Reaction): Coded Allergies: No Known Allergies (Unverified , 06/01/17) Reported Meds & Prescriptions Reported Meds & Active Scripts Active Novolog Inj (Insulin Aspart) 1,000 Unit/10 Ml Vial 2-12 Units SQ ACHS Max dose at bedtime ( ) units; sugars less than 70,(0) units; sugars 150-199,(2) units; sugars 200-249,(4) units; sugars 250-299,(7) units; sugars 300-349,(10) units; sugars greater than 349,(12)units Glucocom Test Strips (Blood Glucose Test Strips) 1 Khushboo Khushboo 1 Ea .ROUTE DIRECTED Insulin Syringe/U-100/31G X 5/16" 1 ml 1 Mis Mis 1 Box .ROUTE DIRECTED Lantus Inj (Insulin Glargine) 1,000 Unit/10 Ml Vial 25 Units SQ BIDAC Review of Systems Except as stated in HPI: all other systems reviewed are Neg Physical Exam Narrative GENERAL: Well-appearing 31 year-old woman, no acute distress. SKIN: Warm and dry. CARDIOVASCULAR: Warm and well perfused. RESPIRATORY: Normal rate and effort. MUSCULOSKELETAL: Unremarkable. NEUROLOGICAL: Awake and alert. No gross deficits. Data Data Last Documented VS Vital Signs Date Time Temp Pulse Resp B/P (MAP) Pulse Ox O2 Delivery O2 Flow Rate FiO2 06/01/17 11:32 97.8 90 18 137/73 (94) 97 Orders Orders Insulin Aspart Inj (Novolog Inj) (06/01/17 12:00) Insulin Detemir Inj (Levemir Inj) (06/01/17 12:00) [facility] Medical Decision Making Medical Screen Exam Complete: Yes Emergency Medical Condition: Yes Differential Diagnosis Diabetes, out of meds, other Narrative Course 31-year-old man hyperglycemia out of medications. No evidence of DKA on history and physical. Diagnosis Primary Impression: Diabetes mellitus with hyperglycemia Additional Instructions: Take insulin as prescribed. Med/Other Pt SpecificInfo: Prescription(s) given Scripts Insulin Aspart Inj (Novolog Inj) 1,000 Unit/10 Ml Vial 2-12 UNITS SQ ACHS for Blood Sugar Management, #10 ML 1 Refill Max dose at bedtime ( ) units; sugars less than 70,(0) units; sugars 150-199,(2) units; sugars 200-249,(4) units; sugars 250-299,(7) units; sugars 300-349,(10) units; sugars greater than 349,(12)units Prov: Adalberto Donahue MD 06/01/17 Glucocom Test Strips (Glucocom Test Strips) 1 Khushboo Khushboo 1 EA .ROUTE DIRECTED for Blood Sugar Management, #100 BOX Prov: Adalberto Donahue MD 06/01/17 Insulin Syringe/U-100/31G X 5/16" 1 ml (Insulin Syringe/U-100/31G X 5/16" 1 ml) 1 Mis Mis 1 BOX .ROUTE DIRECTED for Blood Sugar Management, #1 BOX 0 Refills Prov: Adalberto Donahue MD 06/01/17 Insulin Glargine Inj (Lantus Inj) 1,000 Unit/10 Ml Vial 25 UNITS SQ BIDAC for Blood Sugar Management, #1 VIAL 1 Refill Prov: Adalberto Donahue MD 06/01/17 Disposition: 01 DISCHARGE HOME Condition: Stable Adalberto Donahue MD Jun 01, 2017 11:55
[2017-06-01] MEDS ORDERED: INSULIN ASPART 1,000 UNITS/10 ML VIAL SQ ONE (12:00)
[2017-06-01] MEDS ORDERED: INSULIN DETEMIR 100 UNITS/ML VIAL SQ SCH (12:00)
== END 2017-06-01 13:34 | disposition home or self-care (01) ==
LOC: NEPD 11:31
DX: Z76.0 Encounter for issue of repeat prescription (principal); E11.65 Type 2 diabetes mellitus with hyperglycemia; Z79.4 Long term (current) use of insulin
CPT/HCPCS: 96372; 99284; J1815

== ENCOUNTER 2017-06-14 07:53 | Inpatient (IN) | payer MEDICAID ==
[~2017-06-14] VITALS: Ht 167.6 cm; Wt 65.0 kg
[2017-06-14 07:55] VITALS: BP 139/83; PULSE 122; RESP 15; TEMP 99; O2SAT 98
[2017-06-14] MEDS ORDERED: SODIUM CHLOR 0.9% 1000 ML INJ 1,000 ML IV SCH ×3 (08:38→11:17)
--- NOTE | 2017-06-14 08:44 | PD ---
HPI Chief Complaint: Diabetic Time Seen by Provider: 08:30 Travel History International Travel<30 days: No Contact w/Intl Traveler<30days: No Traveled to known affect area: No History of Present Illness HPI 31-year-old male complains of abdominal pain, nausea, elevated blood sugar. Patient has history of diabetes and cholelithiasis. Patient states that he started having epigastric abdominal pain since yesterday. Patient states the pain is burning pain localized around epigastric area. Patient denies any pain radiation. Patient denies any fever chills. Patient states that he has nausea but no vomiting diarrhea. Patient states the pain is worse with eating. Patient has history of gallbladder disease per the past year. Patient was seen in the emergency room in the past and was advised to have cholecystectomy. Patient has not seen a general surgeon for that. Patient also has history diabetes and on Levemir and NovoLog. Patient states that his blood sugar has been running in the 400s and 500s range for the past week. Patient took his Levemir 25 units and NovoLog 20 units around 3:00 this morning. Patient has history hypertension. Patient has history of drug abuse including cocaine and pot recently. PFSH Past Medical History Hx Anticoagulant Therapy: No Cancer: No Cardiovascular Problems: No Chemotherapy: No Cerebrovascular Accident: No Diabetes: Yes Patient Takes Glucophage: No Diminished Hearing: No Endocrine: Yes Gastrointestinal Disorders: No Genitourinary: No Hypertension: Yes Immune Disorder: No Implanted Vascular Access Dvce: No Musculoskeletal: Yes Neurologic: Yes (neuropathic burning to bilateral feet) Psychiatric: No Reproductive: No Respiratory: No Immunizations Current: Yes Thyroid Disease: No ?: Not Past Surgical History Hysterectomy: No Oral Surgery: Yes (TEETH REMOVED) Other Surgery: No Social History Alcohol Use: Yes (OCC) Tobacco Use: Yes (1 ppd) Substance Use: Yes (MARIJUANA yesterday) Allergies-Medications (Allergen,Severity, Reaction): Coded Allergies: No Known Allergies (Unverified , 06/01/17) Reported Meds & Prescriptions Reported Meds & Active Scripts Active Novolog Inj (Insulin Aspart) 1,000 Unit/10 Ml Vial 2-12 Units SQ ACHS Max dose at bedtime ( ) units; sugars less than 70,(0) units; sugars 150-199,(2) units; sugars 200-249,(4) units; sugars 250-299,(7) units; sugars 300-349,(10) units; sugars greater than 349,(12)units Glucocom Test Strips (Blood Glucose Test Strips) 1 Khushboo Khushboo 1 Ea .ROUTE DIRECTED Insulin Syringe/U-100/31G X 5/16" 1 ml 1 Mis Mis 1 Box .ROUTE DIRECTED Lantus Inj (Insulin Glargine) 1,000 Unit/10 Ml Vial 25 Units SQ BIDAC Physical Exam Narrative GENERAL: Well-nourished, well-developed patient. SKIN: Focused skin assessment warm/dry. HEAD: Normocephalic. EYES: No scleral icterus. No injection or drainage. NECK: Supple, trachea midline. No JVD or lymphadenopathy. CARDIOVASCULAR: Tachycardia rate and rhythm without murmurs, gallops, or rubs. RESPIRATORY: Breath sounds equal bilaterally. No accessory muscle use. GASTROINTESTINAL: Abdomen soft, non-tender, nondistended. MUSCULOSKELETAL: No cyanosis, or edema. BACK: Nontender without obvious deformity. No CVA tenderness. Neurologic exam normal. Data Data Last Documented VS Vital Signs Date Time Temp Pulse Resp B/P (MAP) Pulse Ox O2 Delivery O2 Flow Rate FiO2 06/14/17 08:45 18 98 Room Air 06/14/17 08:14 84 06/14/17 07:55 99.0 Orders Orders Complete Blood Count With Diff (06/14/17 08:38) Comprehensive Metabolic Panel (06/14/17 08:38) Lipase (06/14/17 08:38) Prothrombin Time / Inr (Pt) (06/14/17 08:38) Act Partial Throm Time (Ptt) (06/14/17 08:38) Urinalysis - C+S If Indicated (06/14/17 08:38) Ct Abd/Pel W Iv Contrast(Rout) (06/14/17 08:38) Iv Access Insert/Monitor (06/14/17 08:38) Ecg Monitoring (06/14/17 08:38) Oximetry (06/14/17 08:38) Ondansetron Inj (Zofran Inj) (06/14/17 08:45) Sodium Chlor 0.9% 1000 Ml Inj (Ns 1000 M (06/14/17 08:38) Sodium Chloride 0.9% Flush (Ns Flush) (06/14/17 08:45) Electrocardiogram (06/14/17 08:38) Famotidine Inj (Pepcid Inj) (06/14/17 08:45) Al-Mag Hy-Si 40-40-4 Mg/Ml Liq (Mag-Al P (06/14/17 08:45) Bexfn-Qpkize-Cvlmlb-Pb Liq ( Liq (06/14/17 08:45) Blood Gas Venous Ph (06/14/17 08:40) Beta Hydroxybutyrate (Acetone) (06/14/17 08:40) Iohexol 350 Inj (Omnipaque 350 Inj) (06/14/17 10:21) Labs Laboratory Tests Test 06/14/17 08:57 06/14/17 09:03 White Blood Count 12.3 TH/MM3 Red Blood Count 4.64 MIL/MM3 Hemoglobin 14.6 GM/DL Hematocrit 45.3 % Mean Corpuscular Volume 97.7 FL Mean Corpuscular Hemoglobin 31.5 PG Mean Corpuscular Hemoglobin Concent 32.3 % Red Cell Distribution Width 12.9 % Platelet Count 282 TH/MM3 Mean Platelet Volume 11.3 FL Neutrophils (%) (Auto) 83.1 % Lymphocytes (%) (Auto) 12.3 % Monocytes (%) (Auto) 3.9 % Eosinophils (%) (Auto) 0.2 % Basophils (%) (Auto) 0.5 % Neutrophils # (Auto) 10.2 TH/MM3 Lymphocytes # (Auto) 1.5 TH/MM3 Monocytes # (Auto) 0.5 TH/MM3 Eosinophils # (Auto) 0.0 TH/MM3 Basophils # (Auto) 0.1 TH/MM3 CBC Comment DIFF FINAL Differential Comment Prothrombin Time 10.2 SEC Prothromb Time International Ratio 0.9 RATIO Activated Partial Thromboplast Time 23.8 SEC Urine Color LIGHT-YELLOW Urine Turbidity CLEAR Urine pH 5.5 Urine Specific Hilger 1.029 Urine Protein NEG mg/dL Urine Glucose (UA) 1000 mg/dL Urine Ketones 150 mg/dL Urine Occult Blood NEG Urine Nitrite NEG Urine Bilirubin NEG Urine Urobilinogen LESS THAN 2.0 MG/DL Urine Leukocyte Esterase NEG Urine RBC LESS THAN 1 /hpf Urine WBC 1 /hpf Urine Squamous Epithelial Cells <1 /hpf Microscopic Urinalysis Comment CULT NOT INDICATED Blood Urea Nitrogen 17 MG/DL Creatinine 1.34 MG/DL Random Glucose 610 MG/DL Total Protein 8.0 GM/DL Albumin 4.4 GM/DL Calcium Level 9.6 MG/DL Alkaline Phosphatase 128 U/L Aspartate Amino Transf (AST/SGOT) 23 U/L Alanine Aminotransferase (ALT/SGPT) 27 U/L Total Bilirubin 0.8 MG/DL Sodium Level 129 MEQ/L Potassium Level 5.7 MEQ/L Chloride Level 95 MEQ/L Carbon Dioxide Level 12.3 MEQ/L Anion Gap 22 MEQ/L Estimat Glomerular Filtration Rate 63 ML/MIN Lipase 56 U/L Venous Blood pH 7.29 [facility] Medical Decision Making Medical Screen Exam Complete: Yes Emergency Medical Condition: Yes Differential Diagnosis Differential diagnosis including hyperglycemia, DKA, electrolyte abnormality, gastritis, PUD, pancreatitis, cholecystitis, colitis, UTI, polynephritis, nephrolithiasis. Narrative Course 11:13 AM. Last Impressions Abdomen/Pelvis CT 06/14/17 0838 Signed Impressions: Service Date/Time: Wednesday, June 14, 2017 10:16 - CONCLUSION: Negative. I do not see an etiology for patient's abdominal pain.. Adam Briggs MD FACR 11:14 AM. CBC WBC 12.3. 83 neutrophil. Venous pH 7.29. Sodium 129. Potassium 5.7. Chloride 95. Bicarbonate 12.3. Creatinine 1.34. Glucose 610. UA is negative. Diagnosis Primary Impression: DKA (diabetic ketoacidosis) Qualified Codes: E10.10 - Type 1 diabetes mellitus with ketoacidosis without coma Additional Impressions: Abdominal pain Qualified Codes: R10.13 - Epigastric pain Gastritis Qualified Codes: K29.00 - Acute gastritis without bleeding Admitting Information Admitting Physician Requests: Admit Kd Guthrie MD Jun 14, 2017 08:44
[2017-06-14 08:45] VITALS: RESP 18; O2SAT 98
[2017-06-14] MEDS ORDERED: ONDANSETRON HCL 4 MG/2 ML VIAL IVP ONE (08:45)
[2017-06-14] MEDS ORDERED: ALUMINUM/MAGNESIUM/SIMETH 30 ML CUP PO ONE (08:45)
[2017-06-14] MEDS ORDERED: FAMOTIDINE 20 MG/2 ML VIAL IV PUSH ONE (08:45)
[2017-06-14] MEDS ORDERED: SODIUM CHLORIDE 0.9% FLUSH 10 ML FLUSH IV FLUSH PRN (08:45)
[2017-06-14] MEDS ORDERED: ATROPINE/SCOPOLAM/HYOSCYAM/PB ELIXIR 10 ML CUP PO ONE (08:45)
[2017-06-14 09:23] LABS: AUTOMATED NEUTROPHIL # 10.2 TH/MM3 (1.8-7.7); BASOPHIL # 0.1 TH/MM3 (0-0.2); BASOPHIL % 0.5 % (0.0-2.0); EOSINOPHIL % 0.2 % (0.0-4.0); HEMATOCRIT 45.3 % (39.0-51.0); HEMO FLAGS DIFF FINAL; LYMPH % 12.3 % (9.0-44.0); LYMPHOCYTE # 1.5 TH/MM3 (1.0-4.8); MEAN CELL VOLUME 97.7 FL (80.0-100.0); MEAN CORPUSCULAR HEMOGLOBIN 31.5 PG (27.0-34.0); MEAN CORPUSCULAR HGB CONC 32.3 % (32.0-36.0); MONO % 3.9 % (0.0-8.0); NEUT % 83.1 % (16.0-70.0); PLATELET COUNT 282 TH/MM3 (150-450); RED BLOOD COUNT 4.64 MIL/MM3 (4.50-5.90); RED CELL DISTRIBUTION WIDTH 12.9 % (11.6-17.2); WHITE BLOOD COUNT 12.3 TH/MM3 (4.0-11.0)
[2017-06-14 09:28] LABS: APTT (PATIENT) 23.8 SEC (24.3-30.1); INTERNATIONAL NORMALIZED RATIO 0.9 RATIO; PROTHROMBIN TIME - PATIENT 10.2 SEC (9.8-11.6)
[2017-06-14 09:36] LABS: ALT (GPT) 27 U/L (12-78); ANION GAP 22 MEQ/L (5-15); AST (GOT) 23 U/L (15-37); BICARBONATE 12.3 MEQ/L (21.0-32.0); BLOOD UREA NITROGEN 17 MG/DL (7-18); CHLORIDE 95 MEQ/L (98-107); GLOMERULAR FILTRATION RATE 63 ML/MIN (>89); POTASSIUM 5.7 MEQ/L (3.5-5.1); SODIUM (NA) 129 MEQ/L (136-145)
[2017-06-14 09:38] LABS: BLOOD, URINE NEG (NEG); GLUCOSE,URINE 1000 mg/dL (NEG); KETONE, URINE 150 mg/dL (NEG); NITRITE,URINE NEG (NEG); PH, URINE 5.5 (5.0-8.5); SQUAMOUS EPITHELIAL CELL URINE <1 /hpf (0-5); URINE COLOR LIGHT-YELLOW (YELLW/STRAW)
[2017-06-14 09:39] LABS: COMMENT (UR) CULT NOT INDICATED; CULTURE IF INDICATED CULT NOT INDICATED
[2017-06-14 09:40] LABS: ALKALINE PHOSPHATASE 128 U/L (45-117); TOTAL BILIRUBIN ADULT 0.8 MG/DL (0.2-1.0)
[2017-06-14] MEDS ORDERED: IOHEXOL 350 MG/ML 10 ML VIAL (for RAD DIAG) IVCONTRAST ONE (10:21)
[2017-06-14 10:30] VITALS: BP 120/72; PULSE 126; RESP 18; O2SAT 99
--- NOTE | 2017-06-14 10:53 | RADRPT ---
EXAM DATE/TIME: 06/14/2017 10:16 [place] COMPARISON: No previous studies available for comparison. INDICATIONS : Mid abdominal pain IV CONTRAST: 92 cc Omnipaque 350 (iohexol) IV ORAL CONTRAST: No oral contrast ingested. RADIATION DOSE: 4.25 CTDIvol (mGy) MEDICAL HISTORY : Hypertension. Diabetes mellitus type 2. SURGICAL HISTORY : None. ENCOUNTER: Initial ACUITY: 1 day PAIN SCALE: 6/10 LOCATION: mid abdomen TECHNIQUE: Volumetric scanning of the abdomen and pelvis was performed. Using automated exposure control and ad justment of the mA and/or kV according to patient size, radiation dose was kept as low as reasonably achievable to obtain optimal diagnostic quality images. DICOM format image data is available electro nically for review and comparison. FINDINGS: LOWER LUNGS: The visualized lower lungs are clear. LIVER: Homogeneous density without lesion. There is no dilation of the biliary tree. No calcified gallston es. SPLEEN: Normal size without lesion. PANCREAS: Within normal limits. KIDNEYS: Normal in size and shape. There is no mass, stone or hydronephrosis. ADRENAL GLANDS: Within normal limits. VASCULAR: There is no aortic aneurysm. BOWEL/MESENTERY: The stomach, small bowel, and colon demonstrate no acute abnormality. There is no free intraperitone al air or fluid. ABDOMINAL WALL: Within normal limits. RETROPERITONEUM: There is no lymphadenopathy. BLADDER: No wall thickening or mass. REPRODUCTIVE: Within normal limits. INGUINAL: There is no lymphadenopathy or hernia. MUSCULOSKELETAL: Within normal limits for patient age. CONCLUSION: Negative. I do not see an etiology for patient's abdominal pain.. Adam Briggs MD FACR on June 14, 2017 at 10:50 Board Certified Radiologist. This report was verified electronically.
[2017-06-14] MEDS ORDERED: DEXT 5%-NACL 0.9% 1000 ML INJ 1,000 ML IV SCH (11:17)
[2017-06-14] MEDS ORDERED: MORPHINE SULFATE 2 MG/ML INJ IV PUSH ONE (11:30)
[2017-06-14] MEDS ORDERED: CALCIUM GLUCONATE INJ 1 GM in DEXTROSE 5% IN WATER 100ML INJ 100 ML IV ONE ×2 (11:30)
[2017-06-14] MEDS ORDERED: ONDANSETRON HCL 4 MG/2 ML VIAL IV PUSH ONE (11:30)
[2017-06-14] MEDS ORDERED: INSULIN REGULAR (IV INFUSION) 100 UNITS in SODIUM CHLORIDE 0.9% INJ 99 ML IV PRN (11:30)
[2017-06-14] MEDS ORDERED: SODIUM PHOSPHATE INJ 15 MMOL in SODIUM CHLORIDE 0.9% INJ 100 ML IV PRN (11:30)
[2017-06-14] MEDS ORDERED: POTASSIUM CHLOR 40 MEQ PREMIX 100 ML IV PRN ×2 (11:30)
[2017-06-14] MEDS ORDERED: POTASSIUM CHLOR 20 MEQ PREMIX 100 ML IV PRN ×6 (11:30)
[2017-06-14] MEDS ORDERED: INSULIN HUMAN REGULAR 1,000 UNITS/10 ML VIAL IV PUSH ONE (11:30)
[2017-06-14] MEDS ORDERED: SODIUM BICARBONATE 8.4% SOLN 50 MEQ/50 ML VIAL IV PUSH PRN ×2 (11:30)
[2017-06-14 12:29] VITALS: BP 118/58; PULSE 134; RESP 18; O2SAT 98
--- NOTE | 2017-06-14 12:43 | EKG ---
Date Performed: 06/14/2017 Time Performed: 09:19:18 PTAGE: 31 years EKG: SINUS TACHYCARDIA POSSIBLE LEFT ATRIAL ENLARGEMENT INCOMPLETE RIGHT BUNDLE BRANCH BLOCK ABN ORMAL RHYTHM ECG Compared to prior tracing no significant change PREVIOUS TRACING : 12/18/2016 13.09 DOCTOR: Jam Yepez Interpretating Date/Time 06/14/2017 12:38:35
[2017-06-14 13:29] LABS: BETA-HYDROXYBUTYRATE 8.52 MMOL/L (0.00-0.39)
[2017-06-14] MEDS ORDERED: ACETAMINOPHEN 325 MG TAB PO PRN (13:30)
[2017-06-14] MEDS ORDERED: LACTULOSE SYRUP 20 GM/30 ML CUP PO PRN (13:30)
[2017-06-14] MEDS ORDERED: SENNOSIDES 8.6 MG TAB PO PRN (13:30)
[2017-06-14] MEDS ORDERED: MORPHINE SULFATE 4 MG/ML INJ IV PUSH PRN ×2 (13:30)
[2017-06-14] MEDS ORDERED: BISACODYL 10 MG SUPP RECTAL PRN (13:30)
[2017-06-14] MEDS ORDERED: NALOXONE HCL 0.4 MG/ML AMP IV PUSH PRN (13:30)
[2017-06-14] MEDS ORDERED: MAGNESIUM HYDROXIDE SUSP 30 ML CUP PO PRN (13:30)
[2017-06-14 13:37] VITALS: BP 115/58; PULSE 118; RESP 18; O2SAT 99
[2017-06-14] MEDS ORDERED: HEPARIN SODIUM - SQ 10,000 UNITS/ML VIAL SQ SCH (14:00)
--- NOTE | 2017-06-14 17:38 | HHI.PR ---
Addendum to Inpatient Note Addendum Reason: Additional Documentation Additional Information pt left AMA prior to me seeing him left AMA Condition on discharge: Guarded diabetic Ad Cherry activity Rx written:none pt was adviced by the nurse staffing not to leave hhe is in DKA very high risk medical condition , but pt ended up leaving against medical advice Loretta Munoz MD Jun 14, 2017 17:38
[2017-06-14] MEDS ORDERED: DOCUSATE SODIUM 50 MG/SENNA 8.6 MG TAB PO SCH (21:00)
[2017-06-14 22:14] LABS: HEMOGLOBIN A1a 1.7 %; HEMOGLOBIN A1b 1.2 %; HEMOGLOBIN Ao 69.7 %; HEMOGLOBIN F 3.1 %; HEMOGLOBIN LA1C 5.3 %; HEMOGLOBIN P3 6.1 %
== END 2017-06-14 17:04 | disposition left against medical advice (07) | DRG 639 ==
LOC: NEPE 07:53 → NEDA 11:56
PROVIDERS: ADMIT Hospitalist; ATTEND Hospitalist
DX: E10.10 Type 1 diabetes mellitus with ketoacidosis without coma (principal); G62.9 Polyneuropathy, unspecified; I10 Essential (primary) hypertension; F14.10 Cocaine abuse, uncomplicated; F12.10 Cannabis abuse, uncomplicated; F17.210 Nicotine dependence, cigarettes, uncomplicated
CPT/HCPCS: 74177; 80053; 81001; 82010; 82800; 83036; 83690; 83735; 84100; 85025; 85610; 85730; 93005; 96374; 96375; J0610; J1815; J1817; J2270; J2405; J7030; Q9967

== ENCOUNTER 2017-07-28 10:18 | Inpatient (IN) | payer MEDICAID ==
[~2017-07-28] VITALS: Ht 167.6 cm; Wt 62.0 kg
[2017-07-28] VITALS (11 sets, daily range): BP systolic 97–120; BP diastolic 49–58; PULSE 95–108; RESP 17–24; TEMP 98.4–99.4; O2SAT 97–100
[2017-07-28] MEDS ORDERED: SODIUM CHLOR 0.9% 1000 ML INJ 1,000 ML IV ONE (10:26)
[2017-07-28] MEDS ORDERED: SODIUM CHLORIDE 0.9% FLUSH 10 ML FLUSH IVF PRN (10:30)
--- NOTE | 2017-07-28 10:30 | PD ---
HPI Chief Complaint: Diabetic Time Seen by Provider: 10:25 Travel History International Travel<30 days: No Contact w/Intl Traveler<30days: No Traveled to known affect area: No History of Present Illness HPI 31-year-old male patient with history of insulin-dependent diabetes, here because he apparently started having increased urination, increased thirst, drinking more, nauseous, vomiting, body aches, fatigue, feeling badly after he ran out of his long-acting insulin 2 days ago. He states that he has been out of all of his fast acting insulin for weeks. He states he has not been able to follow-up with primary care doctor due to family responsibilities at work. He denies any fevers or other symptoms. He states it feels like her DKA which she has had in the past. EMS on scene notes that his blood sugars over 500. Modifying Factors: None Associated Signs & Symptoms: Elevated blood sugars, nausea, vomiting, fatigue, body aches, increased urination Risk Factors: Insulin dependent diabetic PFSH Past Medical History Hx Anticoagulant Therapy: No Cancer: No Cardiovascular Problems: No Chemotherapy: No Cerebrovascular Accident: No Diabetes: Yes Diminished Hearing: No Endocrine: Yes Gastrointestinal Disorders: No Genitourinary: No Hypertension: Yes Immune Disorder: No Implanted Vascular Access Dvce: No Musculoskeletal: Yes Neurologic: Yes (neuropathic burning to bilateral feet) Psychiatric: No Reproductive: No Respiratory: No Immunizations Current: Yes Thyroid Disease: No Past Surgical History Hysterectomy: No Oral Surgery: Yes (TEETH REMOVED) Other Surgery: No Social History Alcohol Use: Yes (OCC) Tobacco Use: Yes (1 ppd) Substance Use: Yes (MARIJUANA daily, and coccaine on occasion) Allergies-Medications (Allergen,Severity, Reaction): Coded Allergies: No Known Allergies (Unverified Allergy, Unknown, 07/28/17) Reported Meds & Prescriptions Reported Meds & Active Scripts Active Novolog Inj (Insulin Aspart) 1,000 Unit/10 Ml Vial 2-12 Units SQ ACHS Max dose at bedtime ( ) units; sugars less than 70,(0) units; sugars 150-199,(2) units; sugars 200-249,(4) units; sugars 250-299,(7) units; sugars 300-349,(10) units; sugars greater than 349,(12)units Lantus Inj (Insulin Glargine) 1,000 Unit/10 Ml Vial 25 Units SQ BIDAC Review of Systems Except as stated in HPI: all other systems reviewed are Neg Physical Exam Narrative GENERAL: Well-developed young white male patient currently in moderate distress. Awake and oriented 3. SKIN: Focused skin assessment warm/dry. HEAD: Atraumatic. Normocephalic. EYES: Pupils equal and round. No scleral icterus. No injection or drainage. ENT: No nasal bleeding or discharge. Mucous membranes pink and moist. NECK: Trachea midline. No JVD. CARDIOVASCULAR: Regular rate and rhythm. No murmur appreciated. RESPIRATORY: No accessory muscle use. Clear to auscultation. Breath sounds equal bilaterally. GASTROINTESTINAL: Abdomen soft, non-tender, nondistended. Hepatic and splenic margins not palpable. MUSCULOSKELETAL: No obvious deformities. No clubbing. No cyanosis. No edema. NEUROLOGICAL: Awake and alert. No obvious cranial nerve deficits. Motor grossly within normal limits. Normal speech. PSYCHIATRIC: Appropriate mood and affect; insight and judgment normal. Data Data Last Documented VS Vital Signs Date Time Temp Pulse Resp B/P (MAP) Pulse Ox O2 Delivery O2 Flow Rate FiO2 07/28/17 10:25 98.4 108 17 99 Room Air Orders Orders Electrocardiogram (07/28/17 10:26) Complete Blood Count With Diff (07/28/17 10:26) Comprehensive Metabolic Panel (07/28/17 10:26) Magnesium (Mg) (07/28/17 10:26) Phosphorus (Po4) (07/28/17 10:26) Beta Hydroxybutyrate (Acetone) (07/28/17 10:26) Urinalysis - C+S If Indicated (07/28/17 10:26) Arterial Blood Gas (Abg) (07/28/17 10:26) Ecg Monitoring (07/28/17 10:26) Iv Access Insert/Monitor (07/28/17 10:26) Oximetry (07/28/17 10:26) NPO (07/28/17 10:26) Sodium Chloride 0.9% Flush (Ns Flush) (07/28/17 10:30) Sodium Chlor 0.9% 1000 Ml Inj (Ns 1000 M (07/28/17 10:26) Special Projects Manager / Telemetry [email or web address].[email or web address] (07/28/17 11:44) ^ Insert Iv (07/28/17 11:44) Diet Npo (07/28/17 Lunch) Sodium Chlor 0.9% 1000 Ml Inj (Ns 1000 M (07/28/17 11:44) Dext 5%-Nacl 0.9% 1000 Ml Inj (D5w-Ns 10 (07/28/17 11:44) Insulin Human Regular Inj (Novolin R Inj (07/28/17 11:45) Insulin Regular (Iv Infusion) (Novolin R (07/28/17 11:45) Potassium Chlor 40 Meq Premix (Kcl 40 Me (07/28/17 11:45) Potassium Chlor 40 Meq Premix (Kcl 40 Me (07/28/17 11:45) Potassium Chlor 20 Meq Premix (Kcl 20 Me (07/28/17 11:45) Potassium Chlor 20 Meq Premix (Kcl 20 Me (07/28/17 11:45) Potassium Chlor 20 Meq Premix (Kcl 20 Me (07/28/17 11:45) Potassium Chlor 20 Meq Premix (Kcl 20 Me (07/28/17 11:45) Potassium Chlor 20 Meq Premix (Kcl 20 Me (07/28/17 11:45) Potassium Chlor 20 Meq Premix (Kcl 20 Me (07/28/17 11:45) Sodium Bicarbonate 8.4% Inj (Sodium Bica (07/28/17 11:45) Sodium Bicarbonate 8.4% Inj (Sodium Bica (07/28/17 11:45) Sodium Phosphate Inj (Sodium Phosphate I (07/28/17 11:45) Hemoglobin (Hgb) A1c (07/28/17 11:44) Basic Metabolic Panel (Bmp) (07/28/17 16:44) Basic Metabolic Panel (Bmp) (07/28/17 22:44) Basic Metabolic Panel (Bmp) (07/29/17 04:44) Basic Metabolic Panel (Bmp) (07/29/17 10:44) Magnesium (Mg) (07/28/17 16:44) Magnesium (Mg) (07/28/17 22:44) Magnesium (Mg) (07/29/17 04:44) Magnesium (Mg) (07/29/17 10:44) Phosphorus (Po4) (07/28/17 16:44) Phosphorus (Po4) (07/28/17 22:44) Phosphorus (Po4) (07/29/17 04:44) Phosphorus (Po4) (07/29/17 10:44) Beta Hydroxybutyrate (Acetone) (07/28/17 22:44) Beta Hydroxybutyrate (Acetone) (07/29/17 10:44) Ondansetron Inj (Zofran Inj) (07/28/17 12:00) Admit Order (Ed Use Only) (07/28/17 12:13) Labs Laboratory Tests Test 07/28/17 10:26 07/28/17 10:32 Blood Gas Puncture Site LT RADIAL Blood Gas Patient Temperature 98.6 Blood Gas HCO3 7 mmol/L Blood Gas Base Excess -20.4 mmol/L Blood Gas Oxygen Saturation 96 % Arterial Blood pH 7.19 Arterial Blood Partial Pressure CO2 18 mmHg Arterial Blood Partial Pressure O2 136 mmHG Arterial Blood Oxygen Content 17.5 Vol % Arterial Blood Carboxyhemoglobin 1.5 % Arterial Blood Methemoglobin 0.9 % Blood Gas Hemoglobin 12.9 G/DL Oxygen Delivery Device NASAL CANNULA Blood Gas Liter Flow 2 L/M White Blood Count 17.1 TH/MM3 Red Blood Count 4.13 MIL/MM3 Hemoglobin 13.3 GM/DL Hematocrit 41.8 % Mean Corpuscular Volume 101.4 FL Mean Corpuscular Hemoglobin 32.2 PG Mean Corpuscular Hemoglobin Concent 31.7 % Red Cell Distribution Width 13.9 % Platelet Count 270 TH/MM3 Mean Platelet Volume 11.4 FL Neutrophils (%) (Auto) 87.9 % Lymphocytes (%) (Auto) 8.2 % Monocytes (%) (Auto) 3.4 % Eosinophils (%) (Auto) 0.0 % Basophils (%) (Auto) 0.5 % Neutrophils # (Auto) 15.1 TH/MM3 Lymphocytes # (Auto) 1.4 TH/MM3 Monocytes # (Auto) 0.6 TH/MM3 Eosinophils # (Auto) 0.0 TH/MM3 Basophils # (Auto) 0.1 TH/MM3 CBC Comment DIFF FINAL Differential Comment Blood Urea Nitrogen 34 MG/DL Creatinine 1.43 MG/DL Random Glucose 624 MG/DL Total Protein 7.0 GM/DL Albumin 3.8 GM/DL Calcium Level 8.8 MG/DL Phosphorus Level 6.2 MG/DL Magnesium Level 2.2 MG/DL Alkaline Phosphatase 185 U/L Aspartate Amino Transf (AST/SGOT) 16 U/L Alanine Aminotransferase (ALT/SGPT) 25 U/L Total Bilirubin 0.5 MG/DL Sodium Level 128 MEQ/L Potassium Level 5.2 MEQ/L Chloride Level 94 MEQ/L Carbon Dioxide Level 7.1 MEQ/L Anion Gap 27 MEQ/L Estimat Glomerular Filtration Rate 58 ML/MIN B-Hydroxybutyrate 11.61 MMOL/L MDM Medical Decision Making Medical Screen Exam Complete: Yes Emergency Medical Condition: Yes Medical Record Reviewed: Yes Interpretation(s) EKG shows sinus tachycardia at a rate of 100 bpm with no signs of acute ST-T changes. Laboratory Tests Test 07/28/17 10:26 07/28/17 10:32 Blood Gas HCO3 7 mmol/L (22-26) Blood Gas Base Excess -20.4 mmol/L (-2-2) Arterial Blood pH 7.19 (7.380-7.420) Arterial Blood Partial Pressure CO2 18 mmHg (38-42) Arterial Blood Partial Pressure O2 136 mmHG (61-120) White Blood Count 17.1 TH/MM3 (4.0-11.0) Red Blood Count 4.13 MIL/MM3 (4.50-5.90) Mean Corpuscular Volume 101.4 FL (80.0-100.0) Mean Corpuscular Hemoglobin Concent 31.7 % (32.0-36.0) Mean Platelet Volume 11.4 FL (7.0-11.0) Neutrophils (%) (Auto) 87.9 % (16.0-70.0) Lymphocytes (%) (Auto) 8.2 % (9.0-44.0) Neutrophils # (Auto) 15.1 TH/MM3 (1.8-7.7) Blood Urea Nitrogen 34 MG/DL (7-18) Creatinine 1.43 MG/DL (0.60-1.30) Random Glucose 624 MG/DL (74-106) Phosphorus Level 6.2 MG/DL (2.5-4.9) Alkaline Phosphatase 185 U/L (45-117) Sodium Level 128 MEQ/L (136-145) Potassium Level 5.2 MEQ/L (3.5-5.1) Chloride Level 94 MEQ/L (98-107) Carbon Dioxide Level 7.1 MEQ/L (21.0-32.0) Anion Gap 27 MEQ/L (5-15) Estimat Glomerular Filtration Rate 58 ML/MIN (>89) B-Hydroxybutyrate 11.61 MMOL/L (0.00-0.39) Differential Diagnosis DKA versus other electrolyte abnormalities versus dehydration versus UTI versus sepsis Narrative Course Lab work is significant for hyperglycemia, mild hyperkalemia, and fairly elevated ketones. ABG shows acidosis, likely secondary to DKA. IV fluids have been initiated and DKA protocol initiated with IV insulin. At this point, my plan would be to admit the patient for further treatment for DKA. Case was discussed with Dr. Mcwilliams for admission for ICU. Aggregate critical care 25 minutes. Time to perform other separately billable procedures was not included in the critical care time. My time did not include minutes spent treating any other patients simultaneously or on activities that did not directly contribute to the patient's treatment. The services I provided to this patient were to treat and/or prevent clinically significant deterioration that could result in: Worsening acidosis, dysrhythmias , I provided critical care services requiring my management, as noted below: Chart data review, documentation time, medication orders and management, vital sign assessments/reviewing monitor data, ordering and reviewing lab tests, ordering and interpreting/reviewing x-rays and diagnostic studies, care of the patient and discussion of the patient with the admitting physicians. Diagnosis Primary Impression: DKA (diabetic ketoacidosis) Admitting Information Admitting Physician Requests: Jermaine Sykes MD Jul 28, 2017 10:30
[2017-07-28 10:49] LABS: BLOOD GAS BASE EXCESS -20.4 mmol/L (-2-2); BLOOD GAS CARBOXYHEMOGLOBIN 1.5 % (0-4); BLOOD GAS HCO3 7 mmol/L (22-26); BLOOD GAS METHEMOGLOBIN 0.9 % (0-2); BLOOD GAS O2 HGB SATURATION 96 % (90-100); BLOOD GAS OXYGEN CONTENT 17.5 Vol % (12.0-20.0); BLOOD GAS PCO2 18 mmHg (38-42); BLOOD GAS PO2 136 mmHG (61-120); BLOOD GAS TOTAL HGB 12.9 G/DL (12.0-16.0); TEMP CORR TO 98.6
[2017-07-28 10:50] LABS: CRITICAL VALUE YES; DRAW SITE LT RADIAL; LITER FLOW 2 L/M; NUMBER OF ARTERIAL PUNCTURES 2; OXYGEN DEVICE NASAL CANNULA; STAT YES; ULNAR PULSE PRESENT
[2017-07-28 10:55] LABS: AUTOMATED NEUTROPHIL # 15.1 TH/MM3 (1.8-7.7); BASOPHIL # 0.1 TH/MM3 (0-0.2); BASOPHIL % 0.5 % (0.0-2.0); HEMATOCRIT 41.8 % (39.0-51.0); HEMO FLAGS DIFF FINAL; LYMPH % 8.2 % (9.0-44.0); LYMPHOCYTE # 1.4 TH/MM3 (1.0-4.8); MEAN CELL VOLUME 101.4 FL (80.0-100.0); MEAN CORPUSCULAR HEMOGLOBIN 32.2 PG (27.0-34.0); MEAN CORPUSCULAR HGB CONC 31.7 % (32.0-36.0); MONO % 3.4 % (0.0-8.0); NEUT % 87.9 % (16.0-70.0); PLATELET COUNT 270 TH/MM3 (150-450); RED BLOOD COUNT 4.13 MIL/MM3 (4.50-5.90); RED CELL DISTRIBUTION WIDTH 13.9 % (11.6-17.2); WHITE BLOOD COUNT 17.1 TH/MM3 (4.0-11.0)
[2017-07-28 11:36] LABS: ALKALINE PHOSPHATASE 185 U/L (45-117); ALT (GPT) 25 U/L (12-78); ANION GAP 27 MEQ/L (5-15); AST (GOT) 16 U/L (15-37); BETA-HYDROXYBUTYRATE 11.61 MMOL/L (0.00-0.39); BICARBONATE 7.1 MEQ/L (21.0-32.0); BLOOD UREA NITROGEN 34 MG/DL (7-18); CHLORIDE 94 MEQ/L (98-107); GLOMERULAR FILTRATION RATE 58 ML/MIN (>89); MAGNESIUM 2.2 MG/DL (1.5-2.5); POTASSIUM 5.2 MEQ/L (3.5-5.1); SODIUM (NA) 128 MEQ/L (136-145); TOTAL BILIRUBIN ADULT 0.5 MG/DL (0.2-1.0)
[2017-07-28] MEDS: DEXT 5%-NACL 0.9% 1000 ML INJ 1,000 ML IV SCH ×2 (11:44→17:06)
[2017-07-28] MEDS ORDERED: INSULIN REGULAR (IV INFUSION) 100 UNITS in SODIUM CHLORIDE 0.9% INJ 99 ML IV PRN (11:45)
[2017-07-28] MEDS ORDERED: POTASSIUM CHLOR 20 MEQ PREMIX 100 ML IV PRN ×6 (11:45)
[2017-07-28] MEDS ORDERED: SODIUM PHOSPHATE INJ 15 MMOL in SODIUM CHLORIDE 0.9% INJ 100 ML IV PRN (11:45)
[2017-07-28] MEDS ORDERED: INSULIN HUMAN REGULAR 1,000 UNITS/10 ML VIAL IV PUSH ONE (11:45)
[2017-07-28] MEDS ORDERED: POTASSIUM CHLOR 40 MEQ PREMIX 100 ML IV PRN ×2 (11:45)
[2017-07-28] MEDS ORDERED: SODIUM BICARBONATE 8.4% SOLN 50 MEQ/50 ML VIAL IV PUSH PRN ×2 (11:45)
[2017-07-28] MEDS ORDERED: ONDANSETRON HCL 4 MG/2 ML VIAL IV PUSH ONE (12:00)
[2017-07-28] MEDS: SODIUM CHLOR 0.9% 1000 ML INJ 1,000 ML IV SCH ×2 (12:21→16:42)
[2017-07-28] MEDS ORDERED: SENNOSIDES 8.6 MG TAB PO PRN (12:30)
[2017-07-28] MEDS ORDERED: LACTULOSE SYRUP 20 GM/30 ML CUP PO PRN (12:30)
[2017-07-28] MEDS ORDERED: CHLORHEXIDINE GLUCONATE 2 % 1 PACK (2 CLOTHS) TOP PRN (12:30)
[2017-07-28] MEDS ORDERED: BISACODYL 10 MG SUPP RECTAL PRN (12:30)
[2017-07-28] MEDS ORDERED: MAGNESIUM HYDROXIDE SUSP 30 ML CUP PO PRN (12:30)
[2017-07-28] MEDS ORDERED: MISCELLANEOUS NURSING INFORMATION XX SCH (12:30)
[2017-07-28] MEDS ORDERED: PANTOPRAZOLE SODIUM 40 MG VIAL IV PUSH SCH (13:00)
[2017-07-28 13:07] LABS: BLOOD, URINE NEG (NEG); COMMENT (UR) CULT NOT INDICATED; CULTURE IF INDICATED CULT NOT INDICATED; GLUCOSE,URINE 1000 mg/dL (NEG); KETONE, URINE 150 mg/dL (NEG); MUCUS URINE FEW /lpf (OCC); NITRITE,URINE NEG (NEG); SQUAMOUS EPITHELIAL CELL URINE <1 /hpf (0-5); URINE COLOR LIGHT-YELLOW (YELLW/STRAW)
[2017-07-28] MEDS ORDERED: MORPHINE SULFATE 2 MG/ML INJ IM PRN (13:45)
[2017-07-28] MEDS ORDERED: ONDANSETRON HCL 4 MG/2 ML VIAL IV PUSH PRN (14:00)
--- NOTE | 2017-07-28 15:22 | MH ---
cc: MONA HIDALGO DATE OF ADMISSION: 07/28/2017 : 1985 HISTORY OF PRESENT ILLNESS The patient is a 31-year-old with history of type-I diabetes mellitus, who presented to [facility] ED with increased urination, polydipsia, nausea, vomiting, generalized body aches. The patient states that his last long-acting insulin dose was 2 days ago and his fast acting NovoLog insulin was a month ago. On arrival to the ED he was found to be in DKA. The patient was also tachycardic and tachypneic on arrival. ABG showed metabolic acidosis with a pH of 7.19, CO2 18, pAO2 136, bicarb 7, saturation 96%. His BMP is significant for elevated blood sugar at 624, acute kidney injury with creatinine level 1.4 and a bicarb of 7.1. Other abnormal labs showed leukocytosis with a WBC of 17.1 and beta-hydroxybutyrate increased at 11.61. In the ED he was given 2 liters of crystalloids, NovoLog insulin 10 units IV x1 and placed on insulin drip, which is currently going at 7.7 units per hour. He is on room air oxygen. The patient states that his last admission for DKA was about 2 months ago. He denies any cough, fever, chills or any constitutional symptoms. In addition he denies any abdominal pain, shortness of breath, chest pains. His blood sugar was over 400 on the scene. PAST MEDICAL HISTORY Past medical history significant for type-I diabetes mellitus. PAST SURGICAL HISTORY His past surgical history is unremarkable. SOCIAL HISTORY He smokes half-a-pack per day. Occasional drinker and also smokes marijuana. MEDICATIONS At home include insulin. ALLERGIES NO KNOWN DRUG ALLERGIES. FAMILY HISTORY Noncontributory. REVIEW OF SYSTEMS As per HPI. The rest of the review of systems is unremarkable. PHYSICAL EXAMINATION GENERAL: A 31-year-old male lying in bed, in no acute respiratory distress. VITAL SIGNS: Temperature 98.4, pulse of 104, respiratory rate 21, blood pressure 112/53, saturation 98% on room air. HEENT: Atraumatic, normocephalic. Pupil equal, round and reactive to light and accommodation. Extraocular muscles intact. Conjunctivae pink. Nonicteric sclerae. Oral mucosa within normal. NECK: Supple. No JVD, adenopathy or thyromegaly. Trachea midline. CARDIOVASCULAR: Tachycardic, normal S1-S2. No murmurs, rubs, gallops noted. PULMONARY: Bilateral equal air entry. No rales or wheezing. ABDOMEN: Soft, nontender, no distension. Positive bowel sounds. EXTREMITIES: No cyanosis, clubbing or edema. NEURO: No focal sensory deficit. LABORATORY DATA WBC 17.1, hemoglobin 13, hematocrit 41, platelet count 270, sodium 128, potassium 5.2, chloride 94, CO2 7, BUN 34, creatinine 1.43, glucose 624. Beta-hydroxybutyrate 11.6. IMPRESSION 1. Diabetic ketoacidosis. 2. Anion gap metabolic acidosis. 3. Mild acute kidney injury. 4. Leukocytosis likely stress-related. 5. History of type-I diabetes mellitus. 6. History of DKA and noncompliance. RECOMMENDATIONS 1. Monitor neuro status closely. 2. Oxygen p.r.n. to maintain sats above 92%. 3. Bronchodilators on a p.r.n. basis. 4. Monitor heart rate and blood pressure closely and maintain MAP greater than 65 mmHg. 5. Monitor renal function, I&O's, avoid nephrotoxins. 6. Electrolyte replacement per protocol. He was given 2 liters of crystalloids in the ED. Will continue with IV fluids per DKA protocol. 7. Keep n.p.o. for now. Place on Zofran p.r.n. for nausea and vomiting. 8. Continue with insulin drip per DKA protocol. Monitor BMP, mag phos q. 6-hour, beta-hydroxybutyrate q. 12-hour. 9. Continue with insulin drip per protocol. He is on NS at 250 mL an hour. Once blood sugar falls less than 250, will change IV fluids to D5 NS at 200 mL an hour per protocol. 10. Monitor for signs of infections which include fever and WBC. His leukocytosis likely is stress-related. 11. No indications for GI prophylaxis. DVT prophylaxis with SCDs and heparin subcu. 12. Further recommendations will be based on hospital course. MD SERGIO Vieira/HEATHER /2:15 PM /3:02 PM
[2017-07-28 16:35] LABS: BICARBONATE 12.3 MEQ/L (21.0-32.0); MAGNESIUM 2.5 MG/DL (1.5-2.5); POTASSIUM 3.9 MEQ/L (3.5-5.1)
[2017-07-28 16:49] LABS: BETA-HYDROXYBUTYRATE 6.78 MMOL/L (0.00-0.39)
[2017-07-28] MEDS ORDERED: MORPHINE SULFATE 2 MG/ML INJ IV PUSH PRN (18:00)
[2017-07-28] MEDS ORDERED: DOCUSATE SODIUM 50 MG/SENNA 8.6 MG TAB PO SCH (21:00)
[2017-07-29] MEDS ORDERED: CHLORHEXIDINE GLUCONATE 2 % 1 PACK (2 CLOTHS) TOP SCH (04:00)
[2017-07-29 11:03] LABS: HEMOGLOBIN A1b 1.3 %; HEMOGLOBIN Ao 69.6 %; HEMOGLOBIN F 3.1 %; HEMOGLOBIN LA1C 4.4 %; HEMOGLOBIN P3 6.6 %
--- NOTE | 2017-07-30 08:41 | EKG ---
Date Performed: 07/28/2017 Time Performed: 10:44:34 PTAGE: 31 years EKG: SINUS TACHYCARDIA POSSIBLE LEFT ATRIAL ENLARGEMENT POSSIBLE RIGHT VENTRICULAR CONDUCTION DE LAY ABNORMAL RHYTHM ECG PREVIOUS TRACING : 06/14/2017 09.19 DOCTOR: Adalberto Jameson Interpretating Date/Time 07/30/2017 08:40:49
== END 2017-07-28 20:13 | disposition left against medical advice (07) | DRG 638 ==
LOC: NEPC 10:18 → NEDA 12:15 → HIMW 13:10
PROVIDERS: ADMIT Internal Medicine Critical Care Medicine; ATTEND Internal Medicine Critical Care Medicine
DX: E10.10 Type 1 diabetes mellitus with ketoacidosis without coma (principal); N17.9 Acute kidney failure, unspecified; F17.210 Nicotine dependence, cigarettes, uncomplicated; F12.90 Cannabis use, unspecified, uncomplicated; Z91.19 Patient's noncompliance with other medical treatment and regimen
CPT/HCPCS: 36600; 80048; 80053; 81001; 82010; 82805; 83036; 83735; 84100; 85025; 87641; 93005; 96360; C9113; J1815; J1817; J2270; J2405; J3480; J7030; J7042